=== PATIENT | female | born 1985 | race African-American/Black ===

== ENCOUNTER 2016-10-08 05:57 | Inpatient (IN) | payer BC, MEDICAID, OTHER ==
[2016-10-08] MEDS ORDERED: Sodium Chloride 0.9% 10 ML Syringe FLUSH PRN ×2 (06:04→10:11)
[2016-10-08] MEDS ORDERED: Sodium Chloride 0.9% 2.5 ML Syringe FLUSH PRN ×2 (06:04→10:11)
[2016-10-08] MEDS ORDERED: Citric Acid/Sodium Citrate Solution 30 ML Cup PO SCH (06:15)
[2016-10-08] MEDS ORDERED: Oxytocin 10 Units/1 ML SDV ONE ×2 (07:15→09:37)
[2016-10-08] MEDS ORDERED: ePHEDrine 50 MG/ML SDV ONE (07:15)
[2016-10-08] MEDS ORDERED: Ondansetron 4 MG/2 ML SDV ONE (07:15)
[2016-10-08] MEDS ORDERED: Morphine PF 10 MG/10 ML SDV ONE (07:15)
[2016-10-08] MEDS: Lactated Ringers 1,000 ML IV SCH ×3 (07:25→12:40)
--- NOTE | 2016-10-08 07:50 | PCM.PREANE ---
Preanesthetic Assessment - Anesthesia/Transfusion/Family Hx Anesthesia History: Prior Anesthesia Without Reaction (prior x2) Type of Anesthesia Reaction: Unknown Family History of Anesthesia Reaction: No Transfusion History: No Prior Transfusion(s) Intubation History: Unknown - Review of Systems General: Other (morbid obesity) Pulmonary: Other (suspect early cold, sore throat) Cardiovascular: Palpitations (SVT using intermittent pindolol) Gastrointestinal: Other (GERD) Neurological: No Symptoms Other: Reports: None - Physical Assessment Height: 5 ft 3.5 in Weight: 347 lb ASA Class: 3 Mental Status: Alert & Oriented x3 Airway Class: Mallampati = 2 Dentition: Reports: Normal Dentition Thyro-Mental Finger Breadths: 4 Mouth Opening Finger Breadths: 3 ROM/Head Extension: Full Lungs: Clear to auscultation, Decreased breath sounds (probably due to physical status) Cardiovascular: Regular Rate, Regular Rhythm - Lab Values: Laboratory Last Values WBC 8.41 K/uL (4.0-11.0) 10/08/16 06:39 RBC 3.69 M/uL (4.30-5.90) L 10/08/16 06:39 Hgb 11.8 g/dL (12.0-16.0) L 10/08/16 06:39 Hct 35.1 % (36.0-46.0) L 10/08/16 06:39 MCV 95.1 fL (80.0-98.0) 10/08/16 06:39 MCH 32.0 pg (27.0-32.0) 10/08/16 06:39 MCHC 33.6 g/dL (31.0-37.0) 10/08/16 06:39 RDW Std Deviation 45.4 fl (28.0-62.0) 10/08/16 06:39 RDW Coeff of Jarek 13 % (11.0-15.0) 10/08/16 06:39 Plt Count 210 K/uL (150-400) 10/08/16 06:39 MPV 10.60 fL (7.40-12.00) 10/08/16 06:39 Nucleated RBC % 0.0 /100WBC 10/08/16 06:39 Nucleated RBCs # 0 K/uL 10/08/16 06:39 - Allergies Allergies/Adverse Reactions: Allergies Allergy/AdvReac Type Severity Reaction Status Date / Time Penicillins Allergy Rash Verified 10/08/16 06:03 - Blood Blood Available: Yes Product(s) Available: PRBC - Anesthesia Plan Pre-Op Medication Ordered: Antacids, Beta Simon (asked tpo giove beta simon preop) Beta Simon: Other (pindolol) Med Last Dose Date: 10/08/16 Med Last Dose Time: 07:40 - Acknowledgements Anesthesia Type Planned: Spinal Pt an Appropriate Candidate for the Planned Anesthesia: Yes Alternatives and Risks of Anesthesia Discussed w Pt/Guardian: Yes Pt/Guardian Understands and Agrees with Anesthesia Plan: Yes Additional Comments: present for interview and will be in the room for delivery. 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[employer] History: Reports: , Other (see below) Other OB/BYN History: x 2 Endocrine/Metabolic History: Reports: Obesity/BMI 30+ - Infectious Disease History Infectious Disease History: Reports: Chicken pox, Shingles - Past Surgical History Head Surgeries/Procedures: Reports: None HEENT Surgical History: Reports: Other (see below) Other HEENT Surgeries/Procedures: Patient states sore throat started 2 days ago , also patient complaining of 'nasal sniffles' Cardiovascular Surgical History: Reports: None Other Cardiovascular Surgeries/Procedures: Unsuccessful alation GI Surgical History: Reports: Cholecystectomy Female Surgical History: Reports: section - SUBSTANCE USE Smoking Status *Q: Former Smoker Tobacco Use Within Last Twelve Months: No, Cigarettes Second Hand Smoke Exposure: No Days Per Week of Alcohol Use: 0 Recreational Drug Use History: No - HOME MEDS Home Medications: Home Meds Pnv with Ca,No.71/Iron/Fa [ Vitamin Tablet] 1 tab PO DAILY 02/16/15 [ History] Pindolol 5 mg PO ASDIRECTED 10/03/16 [History] - CURRENT (IN HOUSE) MEDS Current Meds: Current Medications Citric Acid/Sodium Citrate (Bicitra Solution) 30 ml PO .ONCE SOLIS Last Admin: 10/08/16 07:37 Dose: 30 ml Lactated Ringer's (Ringers, Lactated) 1,000 mls @ 500 mls/hr IV .BOLUS SOLIS Last Admin: 10/08/16 07:42 Dose: 500 mls/hr Sodium Chloride (Saline Flush) 10 ml FLUSH ASDIRECTED PRN PRN Reason: Keep Vein Open Sodium Chloride (Saline Flush) 2.5 ml FLUSH ASDIRECTED PRN PRN Reason: Keep Vein Open Discontinued Medications Ephedrine Sulfate (Ephedrine Sulfate) Confirm Administered Dose 50 mg .ROUTE .STK-MED ONE Stop: 10/08/16 07:16 Cefazolin Sodium/Dextrose 3 gm (/ Premix) 75 mls @ 100 mls/hr IV ONETIME ONE Stop: 10/08/16 06:36 Morphine Sulfate (Duramorph Pf) Confirm Administered Dose 10 mg .ROUTE .STK-MED ONE Stop: 10/08/16 07:16 Ondansetron HCl (Zofran) Confirm Administered Dose 4 mg .ROUTE .STK-MED ONE Stop: 10/08/16 07:16 Oxytocin (Pitocin) Confirm Administered Dose 10 unit .ROUTE .STK-MED ONE Stop: 10/08/16 07:16 Preanesthetic Assessment - ANESTHESIA/TRANSFUSION/FAMILY HX Anesthesia/Transfusion History: No Prior Transfusion(s), Prior Anesthesia Family History of Anesthesia Reaction: No - PHYSICAL ASSESSMENT Height: 5 ft 3.5 in Weight: 347 lb - LAB Values: Laboratory Last Values WBC 8.41 K/uL (4.0-11.0) 10/08/16 06:39 RBC 3.69 M/uL (4.30-5.90) L 10/08/16 06:39 Hgb 11.8 g/dL (12.0-16.0) L 10/08/16 06:39 Hct 35.1 % (36.0-46.0) L 10/08/16 06:39 MCV 95.1 fL (80.0-98.0) 10/08/16 06:39 MCH 32.0 pg (27.0-32.0) 10/08/16 06:39 MCHC 33.6 g/dL (31.0-37.0) 10/08/16 06:39 RDW Std Deviation 45.4 fl (28.0-62.0) 10/08/16 06:39 RDW Coeff of Jarek 13 % (11.0-15.0) 10/08/16 06:39 Plt Count 210 K/uL (150-400) 10/08/16 06:39 MPV 10.60 fL (7.40-12.00) 10/08/16 06:39 Nucleated RBC % 0.0 /100WBC 10/08/16 06:39 Nucleated RBCs # 0 K/uL 10/08/16 06:39 - ALLERGIES Allergies/Adverse Reactions: Allergies Allergy/AdvReac Type Severity Reaction Status Date / Time Penicillins Allergy Rash Verified 10/08/16 06:03
[2016-10-08] MEDS ORDERED: Phenylephrine/Normal Saline 100 MCG/ML 10 ML Syringe ONE (08:27)
[2016-10-08] MEDS ORDERED: Phenylephrine 1% 10 MG/ML SDV ONE (08:27)
[2016-10-08] MEDS ORDERED: Naloxone 0.4 MG/ML Syringe IVPUSH PRN (09:19)
[2016-10-08] MEDS ORDERED: fentaNYL 100 MCG/2 ML SDV IVPUSH PRN (09:19)
[2016-10-08] MEDS ORDERED: Nalbuphine 10 MG/1 ML Vial IVPUSH PRN (09:19)
[2016-10-08] MEDS ORDERED: Acetaminophen/oxyCODONE 325-5 MG Tab PO PRN ×2 (09:19→10:11)
[2016-10-08] MEDS ORDERED: diphenhydrAMINE 50 MG/ML SDV IVPUSH PRN (10:11)
[2016-10-08] MEDS ORDERED: Bisacodyl 10 MG Supp RECTAL PRN (10:11)
[2016-10-08] MEDS ORDERED: Ondansetron 4 MG/2 ML SDV IV PRN (10:11)
[2016-10-08] MEDS ORDERED: Ibuprofen 800 MG Tab PO PRN (10:11)
[2016-10-08] MEDS ORDERED: Lanolin 100% Cream 7 GM Tube TOP PRN (10:11)
[2016-10-08] MEDS: Ketorolac 30 MG/ML SDV IVPUSH SCH ×3 (10:37→22:37)
[2016-10-08] MEDS: diphenhydrAMINE 50 MG/ML SDV IVPUSH PRN ×3 (11:15→22:46)
--- NOTE | 2016-10-08 12:24 | PCM.OPNOTE ---
- General Post-Op/Procedure Note Date of Surgery/Procedure: 10/08/16 Operative Procedure(s): Repeat section and bilateral salpingectomies Findings: Male infant, wt 3590gram, Apgars 7 and 9. Normal appearing tubes, ovaries and uterus. Incidental finding on posterior uterine wall, was dislodged surgical clips and multiple possibly gall stones( most likely migrated during her cholecystectomy): removed and send to pathology for confirmation. Dense adhesion between the rectus muscle and the fascia. Pre Op Diagnosis: 1) 39 weeks gestation. 2) Previous section x 2. 3) Desires Permanent Sterilization Post-Op Diagnosis: Same Anesthesia Technique: Spinal Primary Surgeon: Che Altman Founder And Chief Executive Officer: Shaniqua Chou Pathology: Right and left fallopian tubes Possible gall stones Fluid Replacement, Intraop: 3,000 Output, Urine Amount: 100 EBL in mLs: 600 Complications: None Condition: Good Free Text/Narrative:: Intake & Output 10/07/16 10/08/16 10/08/16 22:59 06:59 14:59 Intake Total 3150 Output Total 190 Balance 2960
[2016-10-08] MEDS ORDERED: Lactated Ringers 1,000 ML IV SCH (13:45)
--- NOTE | 2016-10-08 19:32 | PCM.POSTAN ---
POST ANESTHESIA ASSESSMENT - MENTAL STATUS Mental Status: alert, oriented - RESPIRATORY Respiratory Status: respiratory rate WNL, airway patent, O2 saturation stable - CARDIOVASCULAR CV Status: pulse rate WNL, blood pressure stable - GASTROINTESTINAL GI Status: no symptoms - POST OP HYDRATION Hydration Status: adequate & stable
--- NOTE | 2016-10-08 19:33 | PCM48HPAN ---
Post Anesthesia Note - EVALUATION WITHIN 48HRS OF ANESTHETIC Vital Signs in Normal Range: Yes Patient Participated in Evaluation: Yes Respiratory Function Stable: Yes Airway Patent: Yes Cardiovascular Function Stable: Yes Hydration Status Stable: Yes Pain Control Satisfactory: Yes Nausea and Vomiting Control Satisfactory: Yes Mental Status Recovered: Yes - COMMENTS/OBSERVATIONS Free Text/Narrative:: Pt remains on duramorph precautions at this time. Pain has been well controlled to this point. Will continue to follow.
[2016-10-08] MEDS: Docusate Sodium 100 MG Cap PO SCH (21:42)
[2016-10-09] MEDS: Lactated Ringers 1,000 ML IV SCH (02:13)
--- NOTE | 2016-10-09 02:43 | OR ---
SURGEON: Che Altman MD DATE OF PROCEDURE: 10/08/2016 PUNCH BOX TENDER: Dr. Chou. PREOPERATIVE DIAGNOSES: 1. 39 weeks gestation. 2. Two Previous section. 3. Desires permanent sterilization. POSTOPERATIVE DIAGNOSES: 1. 39 weeks gestation. 2. Two Previous section. 3. Desires permanent sterilization. 4. Delivered. PROCEDURE: Repeat section and bilateral salpingectomies. ANESTHESIA: Spinal. ESTIMATED BLOOD LOSS: 600 mL. IV FLUID: 3000 mL of Crystalloid. URINE OUTPUT: 100, clear at the end of the procedure. COMPLICATIONS: None. DISPOSITION: Stable to recovery room. FINDINGS: Male , weight 3590 g, score 7 and 8 at 1 and 5 minutes respectively. Normal-appearing tubes, ovaries, and uterus. Incidental finding on the posterior uterine wall of dislodged surgical clips and multiple possible gallstones (most likely migrated during her cholecystectomy), these were removed and sent to pathology for analysis. Dense adhesions between the rectus muscles and the fascia. INDICATION: The patient is a 30-year-old, G5, P3 with a history of two previous sections opted for a repeat section. Patient desires permanent sterilization. PROCEDURE IN DETAIL: The patient was taken to the operating room, where a spinal anesthesia was performed and found to be adequate. She was then placed in dorsal spine position with a leftward tilt. Prepped and draped in the usual sterile fashion for section. SCDs were in place. Benavides catheter in situ and appropriate time-out held. The patient received 3 g of Ancef. A Pfannenstiel skin incision was made through the old scar and carried through to the underlying layer of fascia with the Bovie. The fascia was scored in the midline and extended laterally with the Bovie. The superior aspect of the fascial incision was grasped with Xuan clamps, elevated, and the underlying rectus muscle, which was densely adherent to the fascia was then dissected off with sharp dissection using the scalpel. In a similar fashion, the inferior aspect of this fascial incision was grasped with Xuan clamps, elevated, and the rectus muscle which was also densely adherent to the fascia was dissected off sharply with the scalpel. In the course of the dissection, lot of perforators were encountered, these were either cauterized or had to be suture ligated to obtain adequate hemostasis. The rectus muscle was then elevated in the midline with 2 Allis clamps on either side and was carefully using the Bovie until the parietal peritoneum was reached and a window was created in the peritoneum. The Allis clamps were removed and digital sweep of the immediate abdominal cavity was performed making sure that there were no adherent bowel underneath before the layer was further taken down with the Bovie, all the way down with good visualization of the bladder. The peritoneal incision was further extended laterally by stretching. An Dio self-retaining retractor was then placed into the abdominal cavity. A very thin lower uterine segment with a window towards the right side of the anterior uterine wall was noted. The vesicouterine peritoneum was identified, and picked up with the pickups and then entered sharply with the Metzenbaum scissors and a bladder flap was created digitally. A transverse uterine incision was then made on the lower uterine wall along the previously mentioned uterine window, this uterine incision was then extended upwards and downwards digitally. The infant's head was delivered atraumatically followed by the shoulders and the rest of the body without difficulty. The oropharynx and nostrils were bulb suctioned on the abdomen. The cord was double clamped and cut and the was handed over to the waiting nursery staff. Cord blood and gas samples were obtained. The placenta was delivered manually. The uterine cavity was cleaned of all clots and debris. The edges of the uterine incision were identified and the hysterotomy site was closed in 2 layers using a 0 Vicryl suture. The first layer was closed in a running locked fashion and the second imbricating layer was performed to obtain excellent hemostasis. One hemostatic stitch was placed on the lower uterine segment towards the right angle, after this the hysterotomy site was found to be completely hemostatic. The uterus was then exteriorized and both tubes were identified and traced all the way to their fimbrial ends. It was during the course of tracing the fallopian tubes that the possible multiple gallstones were noted at the posterior uterine wall. These were excised with the Bovie and sent off for pathological analysis. Using [place] to elevate the left fallopian tube, a salpingectomy was performed using the Harmonic device by cauterizing and ligating along the mesosalpinx until the tube was completely excised up to the cornea. In similar fashion, the right fallopian tube was elevated with the [place] and a salpingectomy was performed in similar fashion. Both sites were hemostatic. The uterus was returned to the abdominal cavity. Copious irrigation was performed. The hysterotomy site was re-examined and found to have excellent hemostasis. The Dio retractor was then removed from the abdominal cavity. The parietal peritoneal edges which were flushed onto the rectus muscle was identified and this layer was then closed with 2-0 Vicryl suture in a running fashion. The muscular layer was reapproximated with 2 mattress type sutures. The subfascial layer was irrigated and found to have excellent hemostasis. The fascia was then closed with 0 PDS in a running fashion. Subcuticular layer was made hemostatic with electrocautery. The subcutaneous layer was reapproximated with 3-0 plain suture in a running fashion since it was more than 3 cm in depth. The skin was closed with 4-0 Monocryl using subcuticular stitches. The patient tolerated the procedure well. Sponge, instrument, and needle counts were reported as complete at the end of the surgery. The patient was taken to the recovery room in stable condition and the baby to the nursery in a stable condition. EEV / ELENI /[id number] MTDHarpreet
[2016-10-09] MEDS: Ketorolac 30 MG/ML SDV IVPUSH SCH ×2 (04:24→09:55)
--- NOTE | 2016-10-09 08:33 | PCM.PNPP ---
- General Info Date of Service: 10/09/16 Functional Status: Reports: pain controlled, tolerating diet, ambulating, other (Benavides was just removed this am) - Review of Systems General: Denies: Fever, Weakness, Fatigue, Malaise HEENT: Denies: headaches Pulmonary: Denies: shortness of breath, pleuritic chest pain, cough Cardiovascular: Denies: Chest Pain, Palpitations, Dyspnea on Exertion Gastrointestinal: Denies: Abdominal pain, Nausea, Vomiting Genitourinary: Denies: flank pain Neurological: Denies: Confusion Psychiatric: Denies: depression, mood lability, anxiety - General Info Date of Service: 10/09/16 - Patient Data Vital Signs - most recent: Last Vital Signs Temp 36.3 C 10/09/16 04:00 Pulse 77 10/09/16 04:00 Resp 16 10/09/16 06:00 BP 119/59 L 10/09/16 04:00 Pulse Ox 93 L 10/09/16 06:00 Weight - most recent: 347 lb I&O - last 24 hours: Intake & Output 10/08/16 10/09/16 10/09/16 22:59 06:59 14:59 Intake Total 2190 1529 Output Total 135 1350 Balance 2055 179 Lab Results - last 24 hrs: Laboratory Results - last 24 hr 10/09/16 Range/Units 04:45 Hgb 10.1 L (12.0-16.0) g/dL Hct 29.7 L (36.0-46.0) % Med Orders - Current: Current Medications Bisacodyl (Dulcolax) 10 mg RECTAL .ONCE PRN PRN Reason: Constipation Diphenhydramine HCl (Benadryl) 25 mg IVPUSH Q4H PRN PRN Reason: Itching Stop: 10/09/16 09:19 Last Admin: 10/08/16 22:46 Dose: 25 mg Diphenhydramine HCl (Benadryl) 25 mg IVPUSH Q6H PRN PRN Reason: Itching or Nausea Docusate Sodium (Colace) 100 mg PO BID SOLIS Last Admin: 10/08/16 21:42 Dose: 100 mg Emollient Ointment (Lansinoh Hpa) 0 gm TOP ASDIRECTED PRN PRN Reason: Sore Nipples Fentanyl (Sublimaze) 25 - 50 mcg IVPUSH Q30M PRN PRN Reason: Pain Lactated Ringer's (Ringers, Lactated) 1,000 mls @ 125 mls/hr IV ASDIRECTED [facility] Last Admin: 10/09/16 02:13 Dose: 125 mls/hr Lactated Ringer's (Ringers, Lactated) 1,000 mls @ 500 mls/hr IV ASDIRECTED [facility] Last Admin: 10/08/16 13:45 Dose: 500 mls/hr Ibuprofen (Motrin) 800 mg PO Q8H PRN PRN Reason: mild pain or fever Ketorolac Tromethamine (Toradol) 30 mg IVPUSH Q6H [facility] Stop: 10/09/16 10:16 Last Admin: 10/09/16 04:24 Dose: 30 mg Measles/Mumps/Rubella Vaccine Live (M-M-R Ii Vaccine) 0.5 ml SUBCUT .ONCE ONE Stop: 10/12/16 10:12 Nalbuphine HCl (Nubain) 5 mg IVPUSH Q3H PRN PRN Reason: Pruritis Stop: 10/09/16 09:19 Naloxone HCl (Narcan) 0.1 mg IVPUSH ONETIME PRN PRN Reason: Other Stop: 10/09/16 09:19 Ondansetron HCl (Zofran) 4 mg IV Q4H PRN PRN Reason: Nausea/Vomiting Oxycodone/Acetaminophen (Percocet 325-5 Mg) 1 - 2 tab PO Q6H PRN PRN Reason: Pain Stop: 10/10/16 14:00 Last Admin: 10/08/16 11:26 Dose: 2 tab Oxycodone/Acetaminophen (Percocet 325-5 Mg) 1 tab PO Q4H PRN PRN Reason: Pain (moderate 4-6) Oxycodone/Acetaminophen (Percocet 325-5 Mg) 2 tab PO Q4H PRN PRN Reason: Pain (moderate 4-6) Pindolol (Visken) 5 mg PO BID PRN PRN Reason: Palpitations Sodium Chloride (Saline Flush) 10 ml FLUSH ASDIRECTED PRN PRN Reason: Keep Vein Open Sodium Chloride (Saline Flush) 2.5 ml FLUSH ASDIRECTED PRN PRN Reason: Keep Vein Open Discontinued Medications Citric Acid/Sodium Citrate (Bicitra Solution) 30 ml PO .ONCE SOLIS Last Admin: 10/08/16 07:37 Dose: 30 ml Ephedrine Sulfate (Ephedrine Sulfate) Confirm Administered Dose 50 mg .ROUTE .STK-MED ONE Stop: 10/08/16 07:16 Glycopyrrolate () Confirm Administered Dose 1 mg .ROUTE .STK-MED ONE Stop: 10/08/16 09:38 Lactated Ringer's (Ringers, Lactated) 1,000 mls @ 500 mls/hr IV .BOLUS SOLIS Last Admin: 10/08/16 07:42 Dose: 500 mls/hr Cefazolin Sodium/Dextrose 3 gm (/ Premix) 75 mls @ 100 mls/hr IV ONETIME ONE Stop: 10/08/16 06:36 Last Admin: 10/08/16 19:43 Dose: Not Given Cefazolin Sodium/Dextrose (Ancef) Confirm Administered Dose 50 mls @ as directed .ROUTE .STK-MED ONE Stop: 10/08/16 08:01 Morphine Sulfate (Duramorph Pf) Confirm Administered Dose 10 mg .ROUTE .STK-MED ONE Stop: 10/08/16 07:16 Ondansetron HCl (Zofran) Confirm Administered Dose 4 mg .ROUTE .STK-MED ONE Stop: 10/08/16 07:16 Oxytocin (Pitocin) Confirm Administered Dose 10 unit .ROUTE .STK-MED ONE Stop: 10/08/16 07:16 Oxytocin (Pitocin) Confirm Administered Dose 20 unit .ROUTE .STK-MED ONE Stop: 10/08/16 09:38 Phenylephrine HCl (Phenylephrine In Ns 100 Mcg/Ml) Confirm Administered Dose 1 mg .ROUTE .STK-MED ONE Stop: 10/08/16 08:28 Phenylephrine HCl (Nelson-Synephrine) Confirm Administered Dose 10 mg .ROUTE .STK- MED ONE Stop: 10/08/16 08:28 Sodium Chloride (Saline Flush) 10 ml FLUSH ASDIRECTED PRN PRN Reason: Keep Vein Open Sodium Chloride (Saline Flush) 2.5 ml FLUSH ASDIRECTED PRN PRN Reason: Keep Vein Open - Infant Interaction Disposition, : North in Room with Family Support Person: Significant Other - Recovery Exam Fundal Tone: Firm Fundal Level: 1 Fingerbreadths Below Umbilicus Fundal Placement: Midline Lochia Amount: Scant, Small Lochia Color: Rubra/Red Perineum Description: Intact, Minimal Bruising/Swelling Episiotomy/Laceration: None Urinary Elimination: Other (see below) (Benavides removed this am, yet to void) - Exam General: alert, oriented Lungs: Clear to auscultation, Normal respiratory effort Cardiovascular: Regular Rate, Regular Rhythm Abdomen: bowel sounds present, soft, no tenderness, no distension Extremities: no calf tenderness, edema Skin: warm Wound/Incisions: dressing dry and intact Psy/Mental Status: alert, normal affect, normal mood - Problem List & Annotations (1) delivery delivered SNOMED Code(s): 326954702 Code(s): O82 - ENCOUNTER FOR DELIVERY WITHOUT INDICATION Status: Acute Current Visit: No - Problem List Review Problem List Initiated/Reviewed/Updated: Yes - My Orders Last 24 Hours: My Active Orders 10/08/16 10:11 Acetaminophen/oxyCODONE [Percocet 325-5 MG] 1 tab PO Q4H PRN Acetaminophen/oxyCODONE [Percocet 325-5 MG] 2 tab PO Q4H PRN Bisacodyl [Dulcolax] 10 mg RECTAL .ONCE PRN Ibuprofen [Motrin] 800 mg PO Q8H PRN Lanolin [Lansinoh HPA] See Dose Instructions TOP ASDIRECTED PRN Ondansetron [Zofran] 4 mg IV Q4H PRN Pindolol [Visken] 5 mg PO BID PRN Sodium Chloride 0.9% [Saline Flush] 10 ml FLUSH ASDIRECTED PRN Sodium Chloride 0.9% [Saline Flush] 2.5 ml FLUSH ASDIRECTED PRN diphenhydrAMINE [Benadryl] 25 mg IVPUSH Q6H PRN Abdominal Binder [OM.PC] Routine Saline Lock Insert [OM.PC] Routine Resuscitation Status Routine 10/08/16 10:12 Patient Status [ADT] Routine Ambulate [RC] PER UNIT ROUTINE Communication Order [RC] PER UNIT ROUTINE Communication Order [RC] PER UNIT ROUTINE Communication Order [RC] Per Unit Routine May Shower [RC] ASDIRECTED RT Incentive Spirometry [RC] Q2HWA Vital Signs [RC] PER UNIT ROUTINE Assess Lochia [WOMSER] Per Unit Routine Assess Uterine Involution [WOMSER] Per Unit Routine Breast Pump [WOMSER] Per Unit Routine Peripheral IV Discontinue [OM.PC] Routine Sequential Compression Device [OM.PC] Per Unit Routine 10/08/16 10:13 Antiembolic Devices [RC] PER UNIT ROUTINE Intake and Output [RC] Q4H 10/08/16 10:14 Notify Provider Intake and Out [RC] ASDIRECTED Notify Provider Vital Signs [RC] ASDIRECTED 10/08/16 10:15 Ketorolac [Toradol] 30 mg IVPUSH Q6H Lactated Ringers [Ringers, Lactated] 1,000 ml IV ASDIRECTED 10/08/16 13:45 Lactated Ringers [Ringers, Lactated] 1,000 ml IV ASDIRECTED 10/08/16 21:00 Docusate Sodium [Colace] 100 mg PO BID 10/08/16 Lunch Regular Diet [DIET] 10/12/16 10:11 Measles, Mumps & Rubella [M-M-R II Vaccine] 0.5 ml SUBCUT .ONCE ONE - Assessment Assessment:: POD#1 s/p RLTCS and Bilateral salpingectomies, stable and afebrile - Plan Plan:: Doing well. Continue current care and anticipate discharge tomorrow
[2016-10-09] MEDS: Docusate Sodium 100 MG Cap PO SCH ×2 (09:55→20:29)
[2016-10-09] MEDS: Acetaminophen/oxyCODONE 325-5 MG Tab PO PRN (20:30)
[2016-10-09] MEDS ORDERED: guaiFENesin 100 MG/5 ML Soln 10 ML UD Cup PO PRN (20:49)
[2016-10-10] MEDS: Acetaminophen/oxyCODONE 325-5 MG Tab PO PRN (03:38)
--- NOTE | 2016-10-10 08:47 | PCM.PNPP ---
- General Info Date of Service: 10/10/16 Functional Status: Reports: pain controlled, tolerating diet, ambulating, urinating - Review of Systems General: Denies: Fever, Weakness, Fatigue, Chills HEENT: Denies: headaches Pulmonary: Denies: shortness of breath, pleuritic chest pain, cough Cardiovascular: Denies: Chest Pain, Palpitations, Dyspnea on Exertion Gastrointestinal: Denies: Abdominal pain Genitourinary: Denies: dysuria, incontinence Psychiatric: Denies: confusion, depression, mood lability, anxiety - General Info Date of Service: 10/10/16 - Patient Data Vital Signs - most recent: Last Vital Signs Temp 36.7 C 10/10/16 03:36 Pulse 114 H 10/10/16 03:36 Resp 20 10/10/16 03:36 BP 117/55 L 10/10/16 03:36 Pulse Ox 99 10/09/16 20:31 Weight - most recent: 347 lb I&O - last 24 hours: Intake & Output 10/09/16 10/10/16 10/10/16 22:59 06:59 14:59 Intake Total 1000 Output Total 1400 Balance -400 Med Orders - Current: Current Medications Bisacodyl (Dulcolax) 10 mg RECTAL .ONCE PRN PRN Reason: Constipation Diphenhydramine HCl (Benadryl) 25 mg IVPUSH Q6H PRN PRN Reason: Itching or Nausea Last Admin: 10/09/16 10:14 Dose: 25 mg Docusate Sodium (Colace) 100 mg PO BID COUNT INCLUDES THE [facility] Last Admin: 10/09/16 20:29 Dose: 100 mg Emollient Ointment (Lansinoh Hpa) 0 gm TOP ASDIRECTED PRN PRN Reason: Sore Nipples Fentanyl (Sublimaze) 25 - 50 mcg IVPUSH Q30M PRN PRN Reason: Pain Guaifenesin (Robitussin) 200 mg PO Q4H PRN PRN Reason: Cough Last Admin: 10/09/16 21:07 Dose: 200 mg Lactated Ringer's (Ringers, Lactated) 1,000 mls @ 125 mls/hr IV ASDIRECTED SOLIS Last Admin: 10/09/16 02:13 Dose: 125 mls/hr Lactated Ringer's (Ringers, Lactated) 1,000 mls @ 500 mls/hr IV ASDIRECTED SOLIS Last Admin: 10/08/16 13:45 Dose: 500 mls/hr Ibuprofen (Motrin) 800 mg PO Q8H PRN PRN Reason: mild pain or fever Measles/Mumps/Rubella Vaccine Live (M-M-R Ii Vaccine) 0.5 ml SUBCUT .ONCE ONE Stop: 10/12/16 10:12 Ondansetron HCl (Zofran) 4 mg IV Q4H PRN PRN Reason: Nausea/Vomiting Oxycodone/Acetaminophen (Percocet 325-5 Mg) 1 - 2 tab PO Q6H PRN PRN Reason: Pain Stop: 10/10/16 14:00 Last Admin: 10/08/16 11:26 Dose: 2 tab Oxycodone/Acetaminophen (Percocet 325-5 Mg) 1 tab PO Q4H PRN PRN Reason: Pain (moderate 4-6) Oxycodone/Acetaminophen (Percocet 325-5 Mg) 2 tab PO Q4H PRN PRN Reason: Pain (moderate 4-6) Last Admin: 10/10/16 03:38 Dose: 2 tab Pindolol (Visken) 5 mg PO BID PRN PRN Reason: Palpitations Sodium Chloride (Saline Flush) 10 ml FLUSH ASDIRECTED PRN PRN Reason: Keep Vein Open Sodium Chloride (Saline Flush) 2.5 ml FLUSH ASDIRECTED PRN PRN Reason: Keep Vein Open Discontinued Medications Citric Acid/Sodium Citrate (Bicitra Solution) 30 ml PO .ONCE SOLIS Last Admin: 10/08/16 07:37 Dose: 30 ml Diphenhydramine HCl (Benadryl) 25 mg IVPUSH Q4H PRN PRN Reason: Itching Stop: 10/09/16 09:19 Last Admin: 10/08/16 22:46 Dose: 25 mg Ephedrine Sulfate (Ephedrine Sulfate) Confirm Administered Dose 50 mg .ROUTE .STK-MED ONE Stop: 10/08/16 07:16 Glycopyrrolate () Confirm Administered Dose 1 mg .ROUTE .STK-MED ONE Stop: 10/08/16 09:38 Lactated Ringer's (Ringers, Lactated) 1,000 mls @ 500 mls/hr IV .BOLUS SOLIS Last Admin: 10/08/16 07:42 Dose: 500 mls/hr Cefazolin Sodium/Dextrose 3 gm (/ Premix) 75 mls @ 100 mls/hr IV ONETIME ONE Stop: 10/08/16 06:36 Last Admin: 10/08/16 19:43 Dose: Not Given Cefazolin Sodium/Dextrose (Ancef) Confirm Administered Dose 50 mls @ as directed .ROUTE .STK-MED ONE Stop: 10/08/16 08:01 Ketorolac Tromethamine (Toradol) 30 mg IVPUSH Q6H SOLIS Stop: 10/09/16 10:16 Last Admin: 10/09/16 09:55 Dose: 30 mg Morphine Sulfate (Duramorph Pf) Confirm Administered Dose 10 mg .ROUTE .STK-MED ONE Stop: 10/08/16 07:16 Nalbuphine HCl (Nubain) 5 mg IVPUSH Q3H PRN PRN Reason: Pruritis Stop: 10/09/16 09:19 Naloxone HCl (Narcan) 0.1 mg IVPUSH ONETIME PRN PRN Reason: Other Stop: 10/09/16 09:19 Ondansetron HCl (Zofran) Confirm Administered Dose 4 mg .ROUTE .STK-MED ONE Stop: 10/08/16 07:16 Oxytocin (Pitocin) Confirm Administered Dose 10 unit .ROUTE .STK-MED ONE Stop: 10/08/16 07:16 Oxytocin (Pitocin) Confirm Administered Dose 20 unit .ROUTE .STK-MED ONE Stop: 10/08/16 09:38 Phenylephrine HCl (Phenylephrine In Ns 100 Mcg/Ml) Confirm Administered Dose 1 mg .ROUTE .STK-MED ONE Stop: 10/08/16 08:28 Phenylephrine HCl (Nelson-Synephrine) Confirm Administered Dose 10 mg .ROUTE .STK- MED ONE Stop: 10/08/16 08:28 Sodium Chloride (Saline Flush) 10 ml FLUSH ASDIRECTED PRN PRN Reason: Keep Vein Open Sodium Chloride (Saline Flush) 2.5 ml FLUSH ASDIRECTED PRN PRN Reason: Keep Vein Open - Interaction Disposition, : Lando at Bedside Feeding: Breastfed Infant; Nursed Well, Continues to Breastfeed Support Person: Significant Other - Recovery Exam Fundal Tone: Firm Fundal Level: 1 Fingerbreadths Below Umbilicus Fundal Placement: Midline Lochia Amount: Scant Lochia Color: Rubra/Red Perineum Description: Intact, Minimal Bruising/Swelling Episiotomy/Laceration: None Bladder Status: Voiding Urinary Elimination: Voided - Exam General: alert, oriented Lungs: Clear to auscultation, Normal respiratory effort Cardiovascular: Regular Rate, Regular Rhythm Abdomen: bowel sounds present, soft, no tenderness, no distension Extremities: no calf tenderness, edema Wound/Incisions: healing well Psy/Mental Status: alert, normal affect, normal mood - Problem List & Annotations (1) delivery delivered SNOMED Code(s): 563656199 Code(s): O82 - ENCOUNTER FOR DELIVERY WITHOUT INDICATION Status: Acute Current Visit: No - Problem List Review Problem List Initiated/Reviewed/Updated: Yes - My Orders Last 24 Hours: My Active Orders 10/12/16 10:11 Measles, Mumps & Rubella [M-M-R II Vaccine] 0.5 ml SUBCUT .ONCE ONE - Assessment Assessment:: POD#2 s/p RLTCS and Bilateral salpingectomies, doing well and clinically stable for discharge - Plan Plan:: Discharge instructions reviewed Nothing in the vagina for 6 weeks Bleeding and infection precautions reviewed Continue PNV Follow up in the clinic in 2 and 6 weeks
[2016-10-10] MEDS: Docusate Sodium 100 MG Cap PO SCH (09:08)
[2016-10-10 10:18] VITALS: BP 134/80
[2016-10-10] MEDS ORDERED: Measles, Mumps & Rubella Vaccine 0.5 ML SDV SUBCUT ONE (11:15)
== END 2016-10-10 11:05 | disposition home or self-care (01) | DRG 540 ==
LOC: MW.OB 05:57
PROVIDERS: ADMIT Obstetrics & Gynecology; ATTEND Obstetrics & Gynecology
PROC: 10D00Z1 Extraction of Products of Conception, Low, Open Approach (ICD-10-PCS; principal; 2016-10-08)
PROC: 0UT70ZZ Resection of Bilateral Fallopian Tubes, Open Approach (ICD-10-PCS; 2016-10-08)
DX: O34.211 Maternal care for low transverse scar from previous cesarean delivery (principal); Z3A.39 39 weeks gestation of pregnancy; Z37.0 Single live birth; Z30.2 Encounter for sterilization
CPT/HCPCS: 01961; 36415; 59025; 85014; 85018; 85027; 86850; 86900; 86901; 88300; 88302; 90707; A9270-GY; J0690; J1200; J1885; J2270; J2370; J2405; J2590; J7120

== ENCOUNTER → 2016-11-04 | Outpatient (CLI) | payer BC, MEDICAID ==
[~2016-11-04] MED LIST: Iopamidol 755 MG/ML 500 ML Multipack Bottle IVPUSH STA
--- NOTE | 2016-11-04 19:07 | PCM.SN ---
- Free Text/Narrative Note: Called by nursing sup they have been unable to obtain PIV access for CT scan with IV contrast. 22g PIV started to Rt FA, draws blood and flushes with ease.
--- NOTE | 2016-11-05 11:05 | CT ---
EXAM DATE: 11/04/16 PATIENT'S AGE: 30 Patient: KOSTA RISSING Facility: [place], [place] Site . Site : 1985 Study: CT Abdomen/Pelvis [id number]/24/2017 7:14:05 PM Ordering Physician: Bolivar Marie Final Report: INDICATION: Postprocedural seroma TECHNIQUE: CT abdomen and pelvis acquired with oral contrast. COMPARISON: None FINDINGS: Lower chest: Unremarkable. Liver: Unremarkable. Spleen: Unremarkable. Pancreas: Unremarkable. Gallbladder and bile ducts: Status post cholecystectomy. Adrenal glands: Unremarkable. Kidneys: Unremarkable. GI tract: Unremarkable. Vascular structures: Unremarkable. Lymph nodes: Bilateral inguinal lymph nodes reach a maximum diameter of 1.3 cm. Miscellaneous: There is a rim enhancing 2.3 x 12.1 x 3.1 cm fluid and air collection within the lower anterior abdominal wall. Small amount of thickening of the inferior rectus muscles is likely post procedural in nature. There is a fat containing umbilical hernia. Pelvic Organs: Unremarkable. Bones: Unremarkable for age. IMPRESSION: Rim enhancing 2.3 x 12.1 x 3.1 cm fluid and air collection within the lower anterior abdominal wall may represent abscess or seroma. Bilateral inguinal adenopathy may be reactive. Fat containing umbilical hernia. Status post cholecystectomy. Dictated by Elvia Stroud MD @ Nov 04 2016 7:23PM (Electronic Signature) Report Signed by Proxy and Original Signed Document filed in the Medical Record. [facility] HOSPITALHarpreet
== END ==
LOC: MW.CT 18:00
PROVIDERS: ATTEND Obstetrics & Gynecology
DX: K91.873 Postprocedural seroma of a digestive system organ or structure following other procedure (principal); K42.9 Umbilical hernia without obstruction or gangrene; Z90.49 Acquired absence of other specified parts of digestive tract
CPT/HCPCS: 74178; Q9967; 36410

== ENCOUNTER 2018-11-03 08:51 | Day surgery (SDC) | payer BC, OTHER ==
[~2018-11-03 08:51] MED LIST changes: -Iopamidol 755 MG/ML 500 ML Multipack Bottle IVPUSH STA; +Lactated Ringers 1,000 ML IV SCH; +Sodium Chloride 0.9% 10 ML SDV IV PRN; +Sodium Chloride 0.9% 10 ML Syringe FLUSH PRN; +Sodium Chloride 0.9% 2.5 ML Syringe FLUSH PRN
[2018-11-03] MEDS ORDERED: Lidocaine 2% 5 ML SDV ONE (10:38)
[2018-11-03] MEDS ORDERED: Propofol 200 MG/20 ML SDV ONE (10:38)
[2018-11-03] MEDS ORDERED: fentaNYL 100 MCG/2 ML SDV ONE (10:38)
[2018-11-03] MEDS ORDERED: Midazolam 1 MG/ML 2 ML SDV ONE (10:38)
--- NOTE | 2018-11-03 10:55 | PCM.PREANE ---
Preanesthetic Assessment - Anesthesia/Transfusion/Family Hx Anesthesia History: Prior Anesthesia Without Reaction Transfusion History: No Prior Transfusion(s) Intubation History: Unknown - Review of Systems General: No Symptoms Pulmonary: No Symptoms Cardiovascular: No Symptoms Gastrointestinal: No Symptoms Neurological: No Symptoms Other: Reports: None - Physical Assessment NPO Status Date: 11/02/18 NPO Status Time: 20:00 O2 Sat by Pulse Oximetry: 99 Respiratory Rate: 16 Vital Signs: Last Vital Signs Temp 36.2 C 11/03/18 09:39 Pulse 48 L 11/03/18 09:39 Resp 16 11/03/18 09:39 BP 124/56 L 11/03/18 09:39 Pulse Ox 99 11/03/18 09:39 Height: 1.63 m Weight: 82.554 kg ASA Class: 3 Mental Status: Alert & Oriented x3 Airway Class: Mallampati = 2 Dentition: Reports: Normal Dentition Thyro-Mental Finger Breadths: 3 Mouth Opening Finger Breadths: 3 ROM/Head Extension: Full Lungs: Clear to Auscultation, Normal Respiratory Effort Cardiovascular: Regular Rate, Regular Rhythm - Lab Values: Laboratory Last Values Urine HCG, Qual NEGATIVE (NEGATIVE) 11/03/18 09:45 - Allergies Allergies/Adverse Reactions: Allergies Allergy/AdvReac Type Severity Reaction Status Date / Time Penicillins Allergy yeast Verified 10/28/18 09:59 infection - Acknowledgements Anesthesia Type Planned: MAC Pt an Appropriate Candidate for the Planned Anesthesia: Yes Alternatives and Risks of Anesthesia Discussed w Pt/Guardian: Yes Pt/Guardian Understands and Agrees with Anesthesia Plan: Yes PreAnesthesia Questionnaire HEENT History: Reports: Other (See Below) Other HEENT History: wears glasses/contacts Cardiovascular History: Reports: Arrhythmia, Syncope (since , for one year, states that she has been having "fainting" spells frequently. Her last episode was this morning. Discussed with patient that she may have seizures and should have this worked up.), Other (See Below) Other Cardiovascular History: hx SVT. 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: Musculoskeletal History: Reports: None Neurological History: Reports: None Psychiatric History: Reports: Anxiety (related to fainting spells) Endocrine/Metabolic History: Reports: Obesity/BMI 30+ Hematologic History: Reports: None Immunologic History: Reports: None Oncologic (Cancer) History: Reports: None Dermatologic History: Reports: None - Infectious Disease History Infectious Disease History: Reports: Chicken Pox, Shingles - Past Surgical History Head Surgeries/Procedures: Reports: None HEENT Surgical History: Reports: Other (See Below) Other HEENT Surgeries/Procedures: Patient states sore throat started 2 days ago , also patient complaining of 'nasal sniffles' Cardiovascular Surgical History: Reports: None Other Cardiovascular Surgeries/Procedures: Unsuccessful alation Respiratory Surgical History: Reports: None GI Surgical History: Reports: Bariatric Procedure, Cholecystectomy Other GI Surgeries/Procedures: gastric sleeve Female Surgical History: Reports: Section, Tubal Ligation Endocrine Surgical History: Reports: None Neurological Surgical History: Reports: None Musculoskeletal Surgical History: Reports: None Oncologic Surgical History: Reports: None Dermatological Surgical History: Reports: None - SUBSTANCE USE Smoking Status *Q: Former Smoker Recreational Drug Use History: No - HOME MEDS Home Medications: Home Meds Propafenone HCl [Propafenone HCl ER] 225 mg PO BID 10/28/18 [History] Verapamil HCl [Verapamil Sr] 240 mg PO DAILY 10/28/18 [History] - CURRENT (IN HOUSE) MEDS Current Meds: Current Medications Lactated Ringer's (Ringers, Lactated) 1,000 mls @ 125 mls/hr IV ASDIRECTED SOLIS Last Admin: 11/03/18 09:44 Dose: 125 mls/hr Lactated Ringer's (Ringers, Lactated) 1,000 mls @ 125 mls/hr IV ASDIRECTED SOLIS Sodium Chloride (Saline Flush) 10 ml FLUSH ASDIRECTED PRN PRN Reason: Keep Vein Open Sodium Chloride (Saline Flush) 2.5 ml FLUSH ASDIRECTED PRN PRN Reason: Keep Vein Open Sodium Chloride (Saline Flush) 10 ml FLUSH ASDIRECTED PRN PRN Reason: Keep Vein Open Sodium Chloride (Saline Flush) 2.5 ml FLUSH ASDIRECTED PRN PRN Reason: Keep Vein Open Sodium Chloride (Normal Saline) 10 ml IV ASDIRECTED PRN PRN Reason: IV Use Sodium Chloride (Saline Flush) 10 ml FLUSH ASDIRECTED PRN PRN Reason: Keep Vein Open Sodium Chloride (Saline Flush) 2.5 ml FLUSH ASDIRECTED PRN PRN Reason: Keep Vein Open Sodium Chloride (Normal Saline) 10 ml IV ASDIRECTED PRN PRN Reason: IV Use Discontinued Medications Fentanyl (Sublimaze) Confirm Administered Dose 100 mcg .ROUTE .STK-MED ONE Stop: 11/03/18 10:39 Lidocaine (Xylocaine-Mpf 2%) Confirm Administered Dose 5 ml .ROUTE .STK-MED ONE Stop: 11/03/18 10:39 Midazolam HCl (Versed 1 Mg/Ml) Confirm Administered Dose 2 mg .ROUTE .STK-MED ONE Stop: 11/03/18 10:39 Propofol (Diprivan 20 Ml) Confirm Administered Dose 400 mg .ROUTE .STK-MED ONE Stop: 11/03/18 10:39
[2018-11-03] MEDS ORDERED: Glycopyrrolate 0.2 MG/ML SDV ONE (11:27)
--- NOTE | 2018-11-03 11:48 | PCM.OPNOTE ---
- General Post-Op/Procedure Note Date of Surgery/Procedure: 11/03/18 Operative Procedure(s): diagnostic colonoscopy Findings: grade 3 hemorrhoids and hepatic flexure polyp Pre Op Diagnosis: bright red blood per rectum and change in bowel habits Post-Op Diagnosis: grade 3 hemorrhoids and hepatic flexure polyp Anesthesia Technique: MAC Primary Surgeon: Caterina Gong Pathology: hepatic flexure polyp EBL in mLs: 0 Condition: Good
--- NOTE | 2018-11-03 12:11 | PCM.POSTAN ---
POST ANESTHESIA ASSESSMENT - MENTAL STATUS Mental Status: Alert, Oriented - RESPIRATORY Respiratory Status: Respiratory Rate WNL, Airway Patent, O2 Saturation Stable - CARDIOVASCULAR CV Status: Pulse Rate WNL, Blood Pressure Stable - GASTROINTESTINAL GI Status: No Symptoms - POST OP HYDRATION Hydration Status: Adequate & Stable - OBSERVATIONS Free Text/Narrative:: The patient tolerated the procedure well. There were no apparent anesthetic complications at this time.
[2018-11-03 12:21] VITALS: BP 112/62
--- NOTE | 2018-11-03 12:29 | PCM48HPAN ---
Post Anesthesia Note - EVALUATION WITHIN 48HRS OF ANESTHETIC Vital Signs in Normal Range: Yes Patient Participated in Evaluation: Yes Respiratory Function Stable: Yes Airway Patent: Yes Cardiovascular Function Stable: Yes Hydration Status Stable: Yes Pain Control Satisfactory: Yes Nausea and Vomiting Control Satisfactory: Yes Mental Status Recovered: Yes Resp Rate: 14 - COMMENTS/OBSERVATIONS Free Text/Narrative:: The patient has no complaints at this time. Discharge home per criteria.
--- NOTE | 2018-11-03 18:55 | OR ---
SURGEON: JOSE GUADALUPE RITTER MD DATE OF PROCEDURE: 11/03/2018 PREOPERATIVE DIAGNOSIS: Chronic constipation. POSTOPERATIVE DIAGNOSIS: Hepatic flexure polyp. PROCEDURE PERFORMED: Diagnostic colonoscopy. ANESTHESIA: MAC. INSTRUMENT USED: Olympus colonoscope. EXTENT OF EXAM: To the cecum. PREPARATION: Good. LIMITATIONS: None. INDICATION FOR EXAMINATION: The patient is a 32-year-old female who presents with complaints of chronic constipation. There is a family history of colon cancer as well. The decision was made to proceed with a diagnostic colonoscopy. I explained the procedure, expected perioperative course, and risks including bleeding, infection, or damage to surrounding structures including perforation. The patient verbalized understanding and wishes to proceed. PROCEDURE IN DETAIL: The patient was brought to the endoscopy suite and placed in the left lateral decubitus position. A time-out was completed verifying the patient's name, age, date of , allergies, and procedure to be performed. Monitored anesthesia care was induced and continuous oxygen was provided via nasal cannula throughout the procedure. After adequate sedation was achieved, a digital rectal exam was performed. This exam was within normal limits. A well-lubricated colonoscope was inserted in the rectum and advanced under direct visualization to the level of the cecum. The cecum was identified by both visual and anatomic landmarks. A photograph was taken of the cecal cap as well as with the scope retroflexed within the cecum. The scope was then straightened out and fully withdrawn while examining the color, texture, anatomy, and integrity of the mucosa from the cecum to the anal canal. The patient was found to have a small polyp within the proximal hepatic flexure. This was removed in piecemeal fashion using a cold biopsy forceps. The remainder of the colon appeared normal. The scope was then brought into the rectum and retroflexed to allow visualization of the anal canal opening. This appeared normal and a photograph was taken. The scope was then straightened out and fully withdrawn. The cecum to anus time was 12 minutes. The patient tolerated the procedure well and was taken to PACU in stable condition. ENDOSCOPIC DIAGNOSIS: Hepatic flexure polyp. RECOMMENDATIONS: We will follow up with the patient in clinic in 2 weeks regarding the pathology results of her polypectomy. Of note, the patient had a bradycardic episode in the preoperative area. She has been having fainting episodes at home. 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 STEWART / ELENI ALLEN: 11/03/2018 16:55:01 /[id number]
== END 2018-11-03 12:33 | disposition home or self-care (01) ==
LOC: MW.SDS 08:51
PROVIDERS: ATTEND Surgery
DX: D12.3 Benign neoplasm of transverse colon (principal); K64.2 Third degree hemorrhoids; I48.91 Unspecified atrial fibrillation; E66.01 Morbid (severe) obesity due to excess calories; Z68.34 Body mass index [BMI] 34.0-34.9, adult; Z79.899 Other long term (current) drug therapy; Z80.0 Family history of malignant neoplasm of digestive organs; Z87.891 Personal history of nicotine dependence; Z88.0 Allergy status to penicillin
CPT/HCPCS: 45380; 81025; 88305; J2001; J2250; J2704; J3010; J3490; J7120

== ENCOUNTER 2019-03-30 08:50 | Emergency (ER) | payer BC, OTHER ==
[2019-03-30] MEDS ORDERED: Sodium Chloride 0.9% 2.5 ML Syringe FLUSH PRN (09:13)
[2019-03-30] MEDS ORDERED: Sodium Chloride 0.9% 10 ML Syringe FLUSH PRN (09:13)
--- NOTE | 2019-03-30 09:19 | EDM.PDOC ---
ED HPI GENERAL MEDICAL PROBLEM - General Chief Complaint: Neurological Problem Stated Complaint: PT FELL AT HOME Time Seen by Provider: 03/30/19 09:02 Source of Information: Reports: Patient History Limitations: Reports: No Limitations - History of Present Illness INITIAL COMMENTS - FREE TEXT/NARRATIVE: History of present illness: []Patient has a history of SVT and has had rates in the 300s in the past. She is followed by Dr. Mullins and is on cardiac meds. She has been having seizures during these SVT episodes. A Holter monitor showed that they are lasting approximately 15 seconds. Sensation states she had 2 seizures back to back last night and fell and complains of a headache and right-sided neck and shoulder pain. She has an appointment with Dr. Brown on April 14. Review of systems: As per history of present illness and below otherwise all systems reviewed and negative. Past medical history: As per history of present illness and as reviewed below otherwise noncontributory. Surgical history: As per history of present illness and as reviewed below otherwise noncontributory. Social history: No reported history of drug or alcohol abuse. Family history: As per history of present illness and as reviewed below otherwise noncontributory. Physical exam: General: Well developed, well nourished in NAD HEENT: Atraumatic, normocephalic, pupils reactive, negative for conjunctival pallor or scleral icterus, mucous membranes moist, throat clear, neck supple, nontender, trachea midline. Lungs: Clear to auscultation, breath sounds equal bilaterally, chest nontender. Heart: S1S2, regular, negative for clicks, rubs, or JVD. Abdomen: NABS, Soft, nondistended, nontender. Negative for masses or hepatosplenomegaly. Negative for costovertebral tenderness. Pelvis: Stable nontender. Genitourinary: Deferred. Rectal: Deferred. Extremities: Atraumatic, negative for cords or calf pain. Neurovascular unremarkable. Neuro: Awake, alert, oriented. Cranial nerves II through XII unremarkable. Cerebellum unremarkable. Motor and sensory unremarkable throughout. Exam nonfocal. Skin:warm and dry Diagnostics: EKG-NSR, CT head and neck normal chest x-ray negative CBC, chemistry normal Therapeutics: Toradol ED Course: Stable Impression: Fall, head and neck pain, Possible seizures,h/o SVT, Prescriptions: None Plan: Take meds as directed, follow up with your primary care physician, return to ER if symptoms worsen or change. Definitive disposition and diagnosis as appropriate pending reevaluation and review of above. hEAD Pain Score (Numeric/FACES): 7 - Related Data Allergies Allergy/AdvReac Type Severity Reaction Status Date / Time Penicillins Allergy yeast Verified 03/30/19 08:56 infection Home Meds: Home Meds Propafenone HCl [Rythmol Sr] 425 mg PO BID 03/30/19 [History] Verapamil HCl [Verapamil ER Pm] 100 mg PO BEDTIME 03/30/19 [History] Past Medical History HEENT History: Reports: Other (See Below) Other HEENT History: wears glasses Cardiovascular History: Reports: Arrhythmia, Syncope, Other (See Below) Other Cardiovascular History: hx SVT. 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 Musculoskeletal History: Reports: None Neurological History: Reports: None Psychiatric History: Reports: Anxiety Endocrine/Metabolic History: Reports: Obesity/BMI 30+ Hematologic History: Reports: None Immunologic History: Reports: None Oncologic (Cancer) History: Reports: None Dermatologic History: Reports: None - Infectious Disease History Infectious Disease History: Reports: None - Past Surgical History Head Surgeries/Procedures: Reports: None Cardiovascular Surgical History: Reports: None Other Cardiovascular Surgeries/Procedures: Unsuccessful alation Respiratory Surgical History: Reports: None GI Surgical History: Reports: Cholecystectomy Female Surgical History: Reports: Section Endocrine Surgical History: Reports: None Neurological Surgical History: Reports: None Musculoskeletal Surgical History: Reports: None Oncologic Surgical History: Reports: None Dermatological Surgical History: Reports: None Social & Family History - Family History Family Medical History: Noncontributory - Tobacco Use Smoking Status *Q: Never Smoker - Caffeine Use Caffeine Use: Reports: Coffee - Recreational Drug Use Recreational Drug Use: No ED ROS GENERAL - Review of Systems Review Of Systems: See Below - Physical Exam Exam: See Below Course - Vital Signs Last Recorded V/S: Last Vital Signs Temp 97.3 F 03/30/19 08:56 Pulse 88 03/30/19 08:56 Resp 17 03/30/19 08:56 BP 112/72 03/30/19 08:56 Pulse Ox 98 03/30/19 08:56 - Orders/Labs/Meds Orders: Active Orders 24 hr Category Date Time Status Cardiac Monitoring [RC] . DIRECTED Care 03/30/19 09:13 Active EKG Documentation Completion [RC] STAT Care 03/30/19 09:13 Active Sodium Chloride 0.9% [Saline Flush] Med 03/30/19 09:13 Active 10 ml FLUSH ASDIRECTED PRN Sodium Chloride 0.9% [Saline Flush] Med 03/30/19 09:13 Active 2.5 ml FLUSH ASDIRECTED PRN Saline Lock Insert [OM.PC] Stat Oth 03/30/19 09:13 Ordered Medication Orders Sodium Chloride (Saline Flush) 10 ml FLUSH ASDIRECTED PRN PRN Reason: Keep Vein Open Sodium Chloride (Saline Flush) 2.5 ml FLUSH ASDIRECTED PRN PRN Reason: Keep Vein Open Labs: Laboratory Tests 03/30/19 03/30/19 Range/Units 09:06 09:06 WBC 5.90 (4.0-11.0) K/uL RBC 4.36 (4.30-5.90) M/uL Hgb 14.2 (12.0-16.0) g/dL Hct 41.6 (36.0-46.0) % MCV 95.4 (80.0-98.0) fL MCH 32.6 H (27.0-32.0) pg MCHC 34.1 (31.0-37.0) g/dL RDW Std Deviation 45.1 (28.0-62.0) fl RDW Coeff of Jarek 13 (11.0-15.0) % Plt Count 257 (150-400) K/uL MPV 10.40 (7.40-12.00) fL Neut % (Auto) 51.0 (48.0-80.0) % Lymph % (Auto) 38.3 (16.0-40.0) % Gila % (Auto) 6.8 (0.0-15.0) % Eos % (Auto) 3.2 (0.0-7.0) % Baso % (Auto) 0.7 (0.0-1.5) % Neut # (Auto) 3.0 (1.4-5.7) K/uL Lymph # (Auto) 2.3 (0.6-2.4) K/uL Gila # (Auto) 0.4 (0.0-0.8) K/uL Eos # (Auto) 0.2 (0.0-0.7) K/uL Baso # (Auto) 0.0 (0.0-0.1) K/uL Nucleated RBC % 0.0 /100WBC Nucleated RBCs # 0 K/uL Sodium 139 (136-145) mmol/L Potassium 3.5 (3.5-5.1) mmol/L Chloride 105 (98-107) mmol/L Carbon Dioxide 26.6 (21.0-32.0) mmol/L BUN 15 (7.0-18.0) mg/dL Creatinine 0.9 (0.6-1.0) mg/dL Est Cr Clr Drug Dosing 75.34 mL/min Estimated GFR (MDRD) > 60.0 ml/min Glucose 81 (74-106) mg/dL Calcium 9.5 (8.5-10.1) mg/dL Total Bilirubin 0.9 (0.2-1.0) mg/dL AST 20 (15-37) IU/L ALT 22 (14-63) IU/L Alkaline Phosphatase 44 L (46-116) U/L Total Protein 7.2 (6.4-8.2) g/dL Albumin 3.8 (3.4-5.0) g/dL Globulin 3.4 (2.6-4.0) g/dL Albumin/Globulin Ratio 1.1 (0.9-1.6) Meds: Medications Generic Name Dose Route Start Last Admin Trade Name Freq PRN Reason Stop Dose Admin Sodium Chloride 10 ml 03/30/19 09:13 Saline Flush FLUSH ASDIRECTED PRN Keep Vein Open Sodium Chloride 2.5 ml 03/30/19 09:13 Saline Flush FLUSH ASDIRECTED PRN Keep Vein Open Discontinued Medications Generic Name Dose Route Start Last Admin Trade Name Freq PRN Reason Stop Dose Admin Ketorolac Tromethamine 30 mg 03/30/19 10:23 Toradol IVPUSH 03/30/19 10:24 ONETIME ONE Departure - Departure Time of Disposition: 10:23 Disposition: Home, Self-Care 01 Condition: Good Clinical Impression: Head pain Qualifiers: Headache type: unspecified Headache chronicity pattern: unspecified pattern Intractability: not intractable Qualified Code(s): R51 - Headache Neck muscle strain Qualifiers: Encounter type: initial encounter Qualified Code(s): S16.1XXA - Strain of muscle, fascia and tendon at neck level, initial encounter - Discharge Information *PRESCRIPTION DRUG MONITORING PROGRAM REVIEWED*: Not Applicable *COPY OF PRESCRIPTION DRUG MONITORING REPORT IN PATIENT TATY: Not Applicable Referrals: Yarely De Jesus MD [Primary Care Provider] - Forms: ED Department Discharge Additional Instructions: The following information is given to patients seen in the emergency department who are being discharged to home. This information is to outline your options for follow-up care. We provide all patients seen in our emergency department with a follow-up referral. The need for follow-up, as well as the timing and circumstances, are variable depending upon the specifics of your emergency department visit. If you don't have a primary care physician on staff, we will provide you with a referral. We always advise you to contact your personal physician following an emergency department visit to inform them of the circumstance of the visit and for follow-up with them and/or the need for any referrals to a consulting specialist. The emergency department will also refer you to a specialist when appropriate. This referral assures that you have the opportunity for follow-up care with a specialist. All of these measure are taken in an effort to provide you with optimal care, which includes your follow-up. Under all circumstances we always encourage you to contact your private physician who remains a resource for coordinating your care. When calling for follow-up care, please make the office aware that this follow-up is from your recent emergency room visit. If for any reason you are refused follow-up, please contact the [facility] Emergency Department at and asked to speak to the emergency department charge nurse. Take meds as directed, follow up with your primary care physician, return to ER if symptoms worsen or change. [facility] [address] [place] [id number] - My Orders Last 24 Hours: My Active Orders 03/30/19 09:13 Cardiac Monitoring [RC] . DIRECTED EKG Documentation Completion [RC] STAT Sodium Chloride 0.9% [Saline Flush] 10 ml FLUSH ASDIRECTED PRN Sodium Chloride 0.9% [Saline Flush] 2.5 ml FLUSH ASDIRECTED PRN Saline Lock Insert [OM.PC] Stat - Assessment/Plan Last 24 Hours: My Active Orders 03/30/19 09:13 Cardiac Monitoring [RC] . DIRECTED EKG Documentation Completion [RC] STAT Sodium Chloride 0.9% [Saline Flush] 10 ml FLUSH ASDIRECTED PRN Sodium Chloride 0.9% [Saline Flush] 2.5 ml FLUSH ASDIRECTED PRN Saline Lock Insert [OM.PC] Stat
[2019-03-30 09:52] LABS: BLOOD UREA NITROGEN,BUN 15 mg/dL (7.0-18.0); CARBON DIOXIDE,CO2 26.6 mmol/L (21.0-32.0); CHLORIDE,CL 105 mmol/L (98-107); GLUCOSE RANDOM 81 mg/dL (74-106); POTASSIUM,K 3.5 mmol/L (3.5-5.1); SODIUM,NA 139 mmol/L (136-145)
--- NOTE | 2019-03-30 10:13 | CT ---
INDICATION: Patient had seizure last night and fell and hit head. COMPARISON: CT head without intravenous contrast 05/19/2018. TECHNIQUE: CT cervical spine without intravenous contrast; coronal and sagittal reformats. FINDINGS: No evidence of acute fracture or dislocation. Obliteration of the normal cervical lordosis. C1-C2 articulation is unremarkable. Lung apices are unremarkable. IMPRESSION: 1. No acute fracture or dislocation. 2. Negative CT cervical spine. Please note that all CT scans at this facility use dose modulation, iterative reconstruction, and/or weight-based dosing when appropriate to reduce radiation dose to as low as reasonably achievable. Dictated by Tricia Jones MD @ Mar 30 2019 10:05AM Signed by Dr. Tricia Jones @ Mar 30 2019 10:12AM
--- NOTE | 2019-03-30 10:15 | CT ---
INDICATION: Seizure; fell. COMPARISON: CT head 05/19/2018. TECHNIQUE: CT head without intravenous contrast; coronal and sagittal reformats. FINDINGS: No evidence of intracranial hemorrhage. No mass lesions. No evidence of shift of the midline structures. The calvarium is unremarkable. The ventricular system, the subarachnoid cisterns and the cerebral sulci are unremarkable. No interval change. Impression : Negative unenhanced head CT. Please note that all CT scans at this facility use dose modulation, iterative reconstruction, and/or weight-based dosing when appropriate to reduce radiation dose to as low as reasonably achievable. Dictated by Tricia Jones MD @ Mar 30 2019 10:12AM Signed by Dr. Tricia Jones @ Mar 30 2019 10:14AM
--- NOTE | 2019-03-30 10:17 | CR ---
INDICATION: Seizure; trauma. TECHNIQUE: Portable AP chest. FINDINGS: Normal size cardiac silhouette. Clear lung gómez with no evidence of acute pneumonic infiltrates or CHF. No pneumothorax or pleural effusion. Impression : Negative portable AP chest. Dictated by Tricia Jones MD @ Mar 30 2019 10:14AM Signed by Dr. Tricia Jones @ Mar 30 2019 10:15AM
[2019-03-30] MEDS ORDERED: Ketorolac 30 MG/ML SDV IVPUSH ONE (10:23)
[2019-03-30 10:44] VITALS: BP 98/58; PULSE 53
== END 2019-03-30 10:36 | disposition home or self-care (01) ==
LOC: MW.ED 08:50
DX: S16.1XXA Strain of muscle, fascia and tendon at neck level, initial encounter (principal); R51 Headache; E66.9 Obesity, unspecified; Z68.30 Body mass index [BMI] 30.0-30.9, adult; Z90.49 Acquired absence of other specified parts of digestive tract; Z88.0 Allergy status to penicillin; Z79.899 Other long term (current) drug therapy; W19.XXXA Unspecified fall, initial encounter
CPT/HCPCS: 36415; 70450; 70450-26; 71045; 71045-26; 72125; 72125-26; 80053; 85025; 93005; 99284; 99285-25

== ENCOUNTER 2019-07-12 04:46 | Emergency (ER) | payer BC, OTHER ==
--- NOTE | 2019-07-12 06:02 | EDM.PDOC ---
ED HPI GENERAL MEDICAL PROBLEM - General Chief Complaint: ENT Problem Stated Complaint: POSSIBLE STREP Time Seen by Provider: 07/12/19 05:57 History Limitations: Reports: No Limitations - History of Present Illness INITIAL COMMENTS - FREE TEXT/NARRATIVE: Has had a sore throat and fevers for the last couple days. Onset: Today Duration: Day(s): Severity: Mild Improves with: Reports: None Worsens with: Reports: None Associated Symptoms: Reports: No Other Symptoms Treatments IP TECHNOLOGY TRANSACTIONS ATTORNEY: Reports: Acetaminophen - Related Data Allergies Allergy/AdvReac Type Severity Reaction Status Date / Time Penicillins Allergy yeast Verified 07/12/19 04:49 infection Home Meds: Home Meds Propafenone HCl [Rythmol Sr] 425 mg PO BID 03/30/19 [History] Verapamil HCl [Verapamil ER Pm] 100 mg PO BEDTIME 03/30/19 [History] Past Medical History HEENT History: Reports: Other (See Below) Other HEENT History: wears glasses Cardiovascular History: Reports: Arrhythmia, Syncope, Other (See Below) Other Cardiovascular History: hx SVT. 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: x 2 Musculoskeletal History: Reports: None Neurological History: Reports: None Psychiatric History: Reports: Anxiety Endocrine/Metabolic History: Reports: Obesity/BMI 30+ Insulin Pump Model and Saw Maker: None Hematologic History: Reports: None Immunologic History: Reports: None Oncologic (Cancer) History: Reports: None Dermatologic History: Reports: None - Infectious Disease History Infectious Disease History: Reports: None - Past Surgical History Head Surgeries/Procedures: Reports: None Cardiovascular Surgical History: Reports: None Respiratory Surgical History: Reports: None GI Surgical History: Reports: Cholecystectomy Female Surgical History: Reports: Section Endocrine Surgical History: Reports: None Neurological Surgical History: Reports: None Musculoskeletal Surgical History: Reports: None Oncologic Surgical History: Reports: None Dermatological Surgical History: Reports: None Social & Family History - Family History Family Medical History: Noncontributory - Tobacco Use Smoking Status *Q: Never Smoker - Caffeine Use Caffeine Use: Reports: None - Recreational Drug Use Recreational Drug Use: No ED ROS ENT - Review of Systems Review Of Systems: Comprehensive ROS is negative, except as noted in HPI. Constitutional: Reports: Fever, Weakness. Denies: Chills, Night Sweats, Diaphoresis, Decreased Appetite HEENT: Reports: Throat Pain. Denies: Eye Discharge, Eye Pain, Glasses, Hearing Loss, Nose Pain, Rhinitis, Sinus Problem, Vertigo, Vision Change Respiratory: Reports: No Symptoms Cardiovascular: Reports: No Symptoms Endocrine: Reports: No Symptoms GI/Abdominal: Reports: No Symptoms : Reports: No Symptoms Musculoskeletal: Reports: No Symptoms Skin: Reports: No Symptoms Neurological: Reports: No Symptoms Psychiatric: Reports: No Symptoms Hematologic/Lymphatic: Reports: No Symptoms Immunologic: Reports: No Symptoms ED EXAM, ENT - Physical Exam Exam: See Below Text/Narrative:: -year-old female with swelling and pain in her throat. HEENT i: The patient has redness and swelling, positive lymphadenopathy Chest: S1-S2 normal Lungs : clear Exam Limited By: No Limitations General Appearance: Alert, WD/WN, No Apparent Distress Eye Exam: Bilateral Eye: Normal Fundi, Normal Inspection Ears: Normal External Exam, Normal Canal, Hearing Grossly Normal, Normal TMs Nose: Normal Inspection, Normal Mucousa Mouth/Throat: Normal Inspection, Normal Gums, Normal Lips, Throat Pain, Throat Swelling Head: Atraumatic, Normocephalic Neck: Normal Inspection, Supple, Non-Tender Respiratory/Chest: No Respiratory Distress, Lungs Clear, No Accessory Muscle Use Cardiovascular: Normal Peripheral Pulses GI/Abdominal: Normal Bowel Sounds, Soft, Non-Tender Back: Normal Inspection Extremities: Normal Inspection Neurological: Alert, Oriented Psychiatric: Other Skin: Warm, Dry Lymphatic: No Adenopathy Course - Vital Signs Text/Narrative:: 33-year-old female presents with throat pain Patient end up having positive strep will be treated for strep. Patient will be treated with Amoxicillin . The yeast infection is not a true allergy Last Recorded V/S: Last Vital Signs Temp 97.5 F 07/12/19 05:00 Pulse 70 07/12/19 05:00 Resp 18 07/12/19 05:00 BP 125/70 07/12/19 05:00 Pulse Ox 96 07/12/19 05:00 Departure - Departure Time of Disposition: 06:05 Disposition: Home, Self-Care 01 Condition: Good Clinical Impression: Strep pharyngitis - Discharge Information Instructions: Strep Throat Referrals: PCP,None [Primary Care Provider] - Sepsis Event Note - Evaluation Sepsis Screening Result: No Definite Risk - Focused Exam Vital Signs: Vital Signs Temp Pulse Resp BP Pulse Ox 07/12/19 05:00 97.5 F 70 18 125/70 96 Date Exam was Performed: 07/12/19 Time Exam was Performed: 05:57
[2019-07-12] MEDS: Amoxicillin 500 MG Cap PO ONE (06:18)
[2019-07-12 06:20] VITALS: BP 114/74; PULSE 63
== END 2019-07-12 06:25 | disposition home or self-care (01) ==
LOC: MW.ED 04:46
DX: J02.0 Streptococcal pharyngitis (principal); I48.91 Unspecified atrial fibrillation; E66.9 Obesity, unspecified; Z88.0 Allergy status to penicillin; Z79.899 Other long term (current) drug therapy
CPT/HCPCS: 87804; 87880; 99283; A9270; 99282

== ENCOUNTER 2019-09-19 16:47 | Emergency (ER) | payer BC ==
[2019-09-19] MEDS ORDERED: Adenosine 6 MG/2 ML SDV IVPUSH ONE (16:55)
[2019-09-19] MEDS ORDERED: Adenosine 6 MG/2 ML SDV ONE ×2 (16:55→17:00)
[2019-09-19] MEDS ORDERED: Sodium Chloride 0.9% 500 ML IV SCH (17:00)
[2019-09-19] MEDS ORDERED: LORazepam 2 MG/ML SDV IVPUSH ONE (17:24)
[2019-09-19 17:42] LABS: BLOOD UREA NITROGEN,BUN 15 mg/dL (7.0-18.0); CARBON DIOXIDE,CO2 27.2 mmol/L (21.0-32.0); CHLORIDE,CL 105 mmol/L (98-107); GLUCOSE RANDOM 95 mg/dL (74-106); POTASSIUM,K 3.6 mmol/L (3.5-5.1); SODIUM,NA 141 mmol/L (136-145)
[2019-09-19] MEDS ORDERED: Potassium Chloride 10% 20 MEQ/15 ML Soln 30 ML UD Cup PO ONE (17:57)
--- NOTE | 2019-09-19 18:30 | EDM.PDOC ---
ED [facility] GENERAL MEDICAL PROBLEM - General Chief Complaint: Cardiovascular Problem Stated Complaint: HEART PROBLEM Time Seen by Provider: 09/19/19 16:54 - History of Present Illness INITIAL COMMENTS - FREE TEXT/NARRATIVE: HPI 33-year-old female with history of SVT on verapamil 100 mg q.h.s. and Propafenone 425 mg bid presents with one hour of palpitations. Denies chest pain , shortness breath, history of DVT or PE. Patient reports compliance with her medications. Patient reports that she has had to have multiple prior adenosine cardioversions. Patient notes that she missed her medications yesterday. M/S/F/SocHx notable for: please see HPI; remainder reviewed with patient and in chart. ROS: Negative constitutional, eye, cardiovascular, pulmonary, GI, , MSK, skin , neurologic, psychiatric, endocrine unless noted in the HPI. Exam Gen: Pleasant, non-toxic appearing, resting comfortably. HEENT: NC, AT, PEERL, EOMI. Resp: Clear to auscultation bilaterally, normal work of breathing, no accessory muscle usage. Card: Regular rate and rhythm with no murmurs, rubs, or gallops, extremities warm and well perfused. GI: Non-tender to palpation throughout all quadrants, no focal tenderness at McBurney's point, negative Cary's sign, non-distended, no rebound or guarding. : No suprapubic tenderness to palpation. MSK: No visible deformities, strength and tone without visually appreciable deficit. Skin: Normal color with no visible lesions. Neuro: alert and oriented 3, no facial asymmetry, vision and hearing WNL. Psych: Mood and affect appropriate. Labs / Imaging: WBC 8.2, HB 14.5, sodium 141, potassium 3.6, magnesium 2.2, hCG negative, TSH 0.93. hCG negative EKG (4:50 PM) SVT 170 bpm with infrequent SR segments. EKG (5:04 PM) SVT 162 bpm. EKG (5:07 PM) SR 70 bpm, APCs present, no ST segment elevations or depressions, no LBBB. EKG (5:18 PM): SR 75 bpm, no ST segment elevations or depressions. MDM Previous chart, nursing note, labs, imaging, and vitals reviewed. A: 33-year-old female with history of SVT on verapamil 100 mg q.h.s. and Propafenone 425 mg bid presents with one hour of palpitations. DDx: SVT, dehydration, electrolyte abnormalities, hyperthyroidism, medication noncompliance. Evaluation: [patient SVT, spontaneously converted with IV fluids. Mildly low potassium. Patient instructed to increase potassium intake. Patient with marked anxiety, 0.5 mg Ativan given. Patient had resolution symptoms and remained in sinus rhythm. TSH WNL. Suspect medication noncompliance may have contributed to todays event. Recommend ongoing compliance with the patients prescribed regimen. Impression: SVT, medication noncompliance. - Related Data Allergies Allergy/AdvReac Type Severity Reaction Status Date / Time Penicillins Allergy yeast Verified 09/19/19 16:58 infection Home Meds: Home Meds Propafenone HCl [Rythmol Sr] 425 mg PO BID 03/30/19 [History] Verapamil HCl [Verapamil ER Pm] 100 mg PO BEDTIME 03/30/19 [History] Amoxicillin 500 mg PO Q8HR 10 Days #30 capsule 07/12/19 [Rx] Fluconazole [Diflucan] 150 mg PO ONETIME PRN #2 tab 07/12/19 [Rx] Past Medical History HEENT History: Reports: Other (See Below) Other HEENT History: wears glasses Cardiovascular History: Reports: Arrhythmia, Syncope, Other (See Below) Other Cardiovascular History: hx SVT. 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 Hematologic History: Reports: None Immunologic History: Reports: None Oncologic (Cancer) History: Reports: None Dermatologic History: Reports: None - Infectious Disease History Infectious Disease History: Reports: Chicken Pox - Past Surgical History Head Surgeries/Procedures: Reports: None Cardiovascular Surgical History: Reports: None Respiratory Surgical History: Reports: None GI Surgical History: Reports: Cholecystectomy Female Surgical History: Reports: Section Endocrine Surgical History: Reports: None Neurological Surgical History: Reports: None Musculoskeletal Surgical History: Reports: None Oncologic Surgical History: Reports: None Dermatological Surgical History: Reports: None Social & Family History - Family History Family Medical History: Noncontributory - Tobacco Use Smoking Status *Q: Unknown Ever Smoked - Caffeine Use Caffeine Use: Reports: None ED ROS GENERAL - Review of Systems Review Of Systems: See Below ED EXAM, GENERAL - Physical Exam Exam: See Below Course - Vital Signs Last Recorded V/S: Last Vital Signs Temp 36.4 C 09/19/19 16:48 Pulse 69 09/19/19 17:26 Resp 22 H 09/19/19 17:26 BP 115/85 09/19/19 17:26 Pulse Ox 100 09/19/19 17:26 - Orders/Labs/Meds Orders: Active Orders 24 hr Category Date Time Status EKG 12 Lead [EKG Documentation Completion] [RC] STAT Care 09/19/19 16:56 Active Sodium Chloride 0.9% [Normal Saline] 500 ml Med 09/19/19 17:00 Active IV .BOLUS Medication Orders Sodium Chloride (Normal Saline) 500 mls @ 1,000 mls/hr IV .BOLUS SOLIS Last Admin: 09/19/19 17:33 Dose: 1,000 mls/hr Labs: Laboratory Tests 09/19/19 09/19/19 09/19/19 Range/Units 17:00 17:00 17:00 WBC 8.23 (4.0-11.0) K/uL RBC 4.35 (4.30-5.90) M/uL Hgb 14.5 (12.0-16.0) g/dL Hct 42.7 (36.0-46.0) % MCV 98.2 H (80.0-98.0) fL MCH 33.3 H (27.0-32.0) pg MCHC 34.0 (31.0-37.0) g/dL RDW Std Deviation 44.9 (28.0-62.0) fl RDW Coeff of Jarek 12 (11.0-15.0) % Plt Count 330 (150-400) K/uL MPV 10.00 (7.40-12.00) fL Neut % (Auto) 45.9 L (48.0-80.0) % Lymph % (Auto) 41.9 H (16.0-40.0) % Comal % (Auto) 10.0 (0.0-15.0) % Eos % (Auto) 1.7 (0.0-7.0) % Baso % (Auto) 0.5 (0.0-1.5) % Neut # (Auto) 3.8 (1.4-5.7) K/uL Lymph # (Auto) 3.5 H (0.6-2.4) K/uL Comal # (Auto) 0.8 (0.0-0.8) K/uL Eos # (Auto) 0.1 (0.0-0.7) K/uL Baso # (Auto) 0.0 (0.0-0.1) K/uL Nucleated RBC % 0.0 /100WBC Nucleated RBCs # 0 K/uL Sodium 141 (136-145) mmol/L Potassium 3.6 (3.5-5.1) mmol/L Chloride 105 (98-107) mmol/L Carbon Dioxide 27.2 (21.0-32.0) mmol/L BUN 15 (7.0-18.0) mg/dL Creatinine 0.9 (0.6-1.0) mg/dL Est Cr Clr Drug Dosing 75.34 mL/min Estimated GFR (MDRD) > 60.0 ml/min Glucose 95 (74-106) mg/dL Calcium 9.4 (8.5-10.1) mg/dL Magnesium 2.2 (1.8-2.4) mg/dL TSH 3rd Generation 0.93 (0.36-3.74) uIU/mL HCG, Qual NEGATIVE (NEG) Meds: Medications Generic Name Dose Route Start Last Admin Trade Name Freq PRN Reason Stop Dose Admin Sodium Chloride 500 mls @ 1,000 mls/hr 09/19/19 17:00 09/19/19 17:33 Normal Saline IV 1,000 mls/hr .BOLUS SOLIS Administration Discontinued Medications Generic Name Dose Route Start Last Admin Trade Name Freq PRN Reason Stop Dose Admin Adenosine Confirm 09/19/19 16:55 09/19/19 17:24 Adenocard Administered 09/19/19 16:56 Not Given Dose 6 mg .ROUTE .STK-MED ONE Adenosine 6 mg 09/19/19 16:55 09/19/19 17:23 Adenocard IVPUSH 09/19/19 16:56 Not Given NOW ONE Adenosine 12 mg 09/19/19 16:55 09/19/19 17:21 Adenoscan IVPUSH 09/19/19 16:56 Not Given ONETIME ONE Adenosine Confirm 09/19/19 17:00 09/19/19 17:23 Adenocard Administered 09/19/19 17:01 Not Given Dose 12 mg .ROUTE .STK-MED ONE Lorazepam 0.5 mg 09/19/19 17:24 09/19/19 17:32 Ativan IVPUSH 09/19/19 17:25 0.5 mg ONETIME ONE Administration Potassium Chloride 40 meq 09/19/19 17:57 Potassium Chloride PO 09/19/19 17:58 ONETIME ONE Departure - Departure Time of Disposition: 18:28 Disposition: Home, Self-Care 01 Clinical Impression: SVT (supraventricular tachycardia) Referrals: PCP,None [Primary Care Provider] - Additional Instructions: You were in seen in the [facility] Emergency Department for evaluation of a racing heart, you were found to be and supraventricular tachycardia. You were also found to have mildly low potassium. Please increase your intake of potassium rich foods such as oranges, avocados, and penis. Please take your medications as prescribed. Please follow-up with your primary care physician or your air pollution auditor within 2-3 days. Please read and follow all of the instructions below. When calling for follow-up care, please make the office aware that this follow- up is from your recent emergency room visit. If for any reason you are refused follow-up, please contact the [facility] Emergency Department at and asked to speak to the emergency department charge nurse. Your care today was limited to identifying and treating emergent medical problems only. Many people have subtle differences in their test results that require follow up with their outpatient physician(s) to correctly determine if this represents a normal variation or concerning abnormality with respect to your specific health. The care given to you today was limited to identifying and treating emergent medical problems - you need to request a copy of all of your medical records from today's visit and follow up with your outpatient physician(s) to review both today's visit and your overall health. If you have any new symptoms or if you are at all concerned about your health please return immediately to the emergency department. Prescriptions: If you are uninsured or have financial difficulties with filling your prescription(s), you may consider using a free pharmacy discount service such as [employer] ([employer]) or [employer] ([facility]). These services allow you to search for a medication on your phone (or computer) and obtain a coupon that usually has a significant discount from the list sahni at a pharmacy. Your physician as well as [facility] does not have a financial relationship with either of these services. You may also wish to speak with your physician to determine if lower cost prescriptions are possible. Obtaining primary care: 1. [facility] provides pediatrics (children), family medicine (children, adults, and some obstetrical care), and internal medicine (adults). Further specialty care is also available. Same day appointments are available. They may be contacted at [phone] and are open Friday through Friday 8 AM to 5 PM. The [facility] are located at [facility], [address] [place] [address] 58. 2. [facility] offers family medicine, internal medicine, women health, and further specialty care. [facility] may be contacted at [phone]. [facility] is located at [address] [place], [place] [id number]. 3. If you have health insurance, please also contact your insurer for a list of accepting providers under your policy, you may contact these providers for further health care. Occupational health: Work related injuries may consider following up with [facility], . Occupational health services are located at [address] [place] [id number] and are open Friday through Friday from 7: 30 am to 5:00 pm. Obstetrical and Gynecological Care: [facility], , Friday through Friday 8 AM to 5 PM. [address] [place] [id number]. Eyecare: If you have an eye injury you should follow up with your wooden boat builder or with [facility], at [phone] or [phone] , they are located at [address] [place] [address]. Dental Care Luis A Hernandez DDS. [address] [facility] [place], [place]. Ph. [phone] Andrei Hernandez DDS MS. [address] [facility] [address], [place], [place]. Ph. Jonny Inman DDS. 10 07/[address] [place] [address], [place], [place]. Ph. [phone] Dwayne Bustamante DDS. [address] [facility] [address] [place], [place]. Ph. [phone] Wagner Waddell DDS PC. [address] [facility] [address] [place], [place]. Ph. [phone] Maricruz Long DDS. [address] [facility]. Ph. [phone] [facility]. [address] [place], [place]. Ph. [phone] [facility]. [address] [place] [address], [place], [place]. Ph. [phone] [facility] [address] [place] [address]. Ph. [phone] [facility]. [address] [place] [address] [address] [place], [place]. Ph. [phone] [facility]. [address] [place], [place]. Ph. Sepsis Event Note - Evaluation Sepsis Screening Result: No Definite Risk - Focused Exam Vital Signs: Vital Signs Temp Pulse Resp BP Pulse Ox 09/19/19 17:26 69 22 H 115/85 100 09/19/19 16:48 36.4 C 150 H 18 142/121 H 100 Date Exam was Performed: 09/19/19 Time Exam was Performed: 18:27 - My Orders Last 24 Hours: My Active Orders 09/19/19 16:56 EKG 12 Lead [EKG Documentation Completion] [RC] STAT 09/19/19 17:00 Sodium Chloride 0.9% [Normal Saline] 500 ml IV .BOLUS - Assessment/Plan Last 24 Hours: My Active Orders 09/19/19 16:56 EKG 12 Lead [EKG Documentation Completion] [RC] STAT 09/19/19 17:00 Sodium Chloride 0.9% [Normal Saline] 500 ml IV .BOLUS
[2019-09-19] MEDS ORDERED: LORazepam 1 MG Tab PO ONE (18:37)
[2019-09-19 18:58] VITALS: BP 131/88; PULSE 54
== END 2019-09-19 19:09 | disposition home or self-care (01) ==
LOC: MW.ED 16:47
DX: I47.1 Supraventricular tachycardia (principal); I48.91 Unspecified atrial fibrillation; E66.9 Obesity, unspecified; Z68.24 Body mass index [BMI] 24.0-24.9, adult; Z88.0 Allergy status to penicillin; Z79.899 Other long term (current) drug therapy
CPT/HCPCS: 36415; 80048; 83735; 84443; 84703; 85025; 93005; 96374; 99285; A9270; J2060; J7040; 99284

== ENCOUNTER 2019-12-21 10:58 | Emergency (ER) | payer BC ==
--- NOTE | 2019-12-21 11:23 | EDM.PDOC ---
ED HPI GENERAL MEDICAL PROBLEM - General Chief Complaint: Head Injury Stated Complaint: BLURRY VISION, AND PAIN IN NECK Time Seen by Provider: 12/21/19 11:13 - History of Present Illness INITIAL COMMENTS - FREE TEXT/NARRATIVE: 34-year-old female with history of SVT, atrial fibrillation presents with head pain after fall. 2 days ago she blacked out with no precipitating symptoms and hit the back of her head on hard concrete, she currently complains of blurred vision, neck pain, headache in the back of her head. Associated with one episode of vomiting Friday night. She denies chest pain, fever, chills, cough, shortness of breath, palpitations. She is currently taking propafenone and verapamil. She is not on aspirin. ROS: A 10-point review of systems, other than pertinent positives and negatives as stated per HPI, is otherwise negative PHYSICAL EXAM General: AOx4, GCS = 15, No distress HEENT: dry mucous membrane, NC/AT, no raccoon sign, barrera sign, hemotympanum, otorrhea, rhinorrhea. Neck: C-spine ttp, bilateral upper trapezius tender to palpation. Cardiac: S1S2 irregular rhythm. Respiratory: CTAB, no crackles or rales, no wheezing Abdomen: Soft, nontender, no rebound or guarding, nondistended, no pulsatile mass. Back: nontender Musculoskeletal: NVI distally, no deformity Neuro: No focal deficits MEDICAL DECISION MAKING: I reviewed the patients past medical records, lab and radiographic findings. I discussed the case with family members. My differential diagnosis included: Cervical spine injury, scalp hematoma, electrolyte abnormality, ACS. Patient's CT scan of the head and C-spine did not reveal any acute abnormalities warranting trauma activation. Electrolytes are unremarkable, EKG and chest x-ray did not reveal any underlying abnormalities. I believe she is stable for outpatient follow-up with Dr. Mullins neck Pain Score (Numeric/FACES): 10 - Related Data Allergies Allergy/AdvReac Type Severity Reaction Status Date / Time Penicillins Allergy yeast Verified 12/21/19 11:09 infection Home Meds: Home Meds Propafenone HCl [Rythmol Sr] 425 mg PO BID 03/30/19 [History] Verapamil HCl [Verapamil ER Pm] 100 mg PO BEDTIME 03/30/19 [History] Naproxen [Naprosyn] 500 mg PO Q12HR #10 tab 12/21/19 [Rx] Past Medical History HEENT History: Reports: Other (See Below) Other HEENT History: wears glasses Cardiovascular History: Reports: Arrhythmia, Syncope, Other (See Below) Other Cardiovascular History: hx SVT. 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 Hematologic History: Reports: None Immunologic History: Reports: None Oncologic (Cancer) History: Reports: None Dermatologic History: Reports: None - Infectious Disease History Infectious Disease History: Reports: Chicken Pox, Shingles - Past Surgical History Head Surgeries/Procedures: Reports: None HEENT Surgical History: Reports: None Cardiovascular Surgical History: Reports: None Respiratory Surgical History: Reports: None GI Surgical History: Reports: Cholecystectomy Female Surgical History: Reports: Section Endocrine Surgical History: Reports: None Neurological Surgical History: Reports: None Musculoskeletal Surgical History: Reports: None Oncologic Surgical History: Reports: None Dermatological Surgical History: Reports: None Social & Family History - Family History Family Medical History: Noncontributory - Tobacco Use Smoking Status *Q: Current Every Day Smoker Years of Tobacco use: 20 Packs/Tins Daily: 0.2 - Caffeine Use Caffeine Use: Reports: None - Recreational Drug Use Recreational Drug Use: No ED ROS GENERAL - Review of Systems Review Of Systems: See Below (see dictation) ED EXAM, HEAD INJURY - Physical Exam Exam: See Below (see dictation) EKG INTERPRETATION EKG Interpretation Comments: 62 Bpm, NSR, normal QRS interval, no STEMI. EKG and rhythm strip interpreted by me at 1144 Course - Vital Signs Last Recorded V/S: Last Vital Signs Temp 96.4 F L 12/21/19 11:07 Pulse 62 12/21/19 11:07 Resp 18 12/21/19 11:07 BP 121/79 12/21/19 11:07 Pulse Ox 100 12/21/19 11:07 - Orders/Labs/Meds Orders: Active Orders 24 hr Category Date Time Status Cardiac Monitoring [RC] . DIRECTED Care 12/21/19 11:19 Active Cervical Strap [Immobilizer] [RC] ASDIRECTED Care 12/21/19 11:20 Active EKG Documentation Completion [RC] STAT Care 12/21/19 11:19 Active Pulse Oximetry [RC] ASDIRECTED Care 12/21/19 11:19 Active Labs: Laboratory Tests 12/21/19 12/21/19 Range/Units 11:37 11:37 WBC 6.60 (4.0-11.0) K/uL RBC 3.95 L (4.30-5.90) M/uL Hgb 13.0 (12.0-16.0) g/dL Hct 38.8 (36.0-46.0) % MCV 98.2 H (80.0-98.0) fL MCH 32.9 H (27.0-32.0) pg MCHC 33.5 (31.0-37.0) g/dL RDW Std Deviation 44.2 (28.0-62.0) fl RDW Coeff of Jarek 12 (11.0-15.0) % Plt Count 261 (150-400) K/uL MPV 9.90 (7.40-12.00) fL Neut % (Auto) 61.2 (48.0-80.0) % Lymph % (Auto) 31.8 (16.0-40.0) % Giles % (Auto) 5.6 (0.0-15.0) % Eos % (Auto) 1.1 (0.0-7.0) % Baso % (Auto) 0.3 (0.0-1.5) % Neut # (Auto) 4.0 (1.4-5.7) K/uL Lymph # (Auto) 2.1 (0.6-2.4) K/uL Giles # (Auto) 0.4 (0.0-0.8) K/uL Eos # (Auto) 0.1 (0.0-0.7) K/uL Baso # (Auto) 0.0 (0.0-0.1) K/uL Nucleated RBC % 0.0 /100WBC Nucleated RBCs # 0 K/uL Sodium 141 (136-145) mmol/L Potassium 3.4 L (3.5-5.1) mmol/L Chloride 105 (98-107) mmol/L Carbon Dioxide 27.2 (21.0-32.0) mmol/L BUN 20 H (7.0-18.0) mg/dL Creatinine 0.9 (0.6-1.0) mg/dL Est Cr Clr Drug Dosing 77.76 mL/min Estimated GFR (MDRD) > 60.0 ml/min Glucose 89 (74-106) mg/dL Calcium 8.2 L (8.5-10.1) mg/dL Total Bilirubin 1.0 (0.2-1.0) mg/dL AST 25 (15-37) IU/L ALT 26 (14-63) IU/L Alkaline Phosphatase 52 (46-116) U/L Troponin I < 0.050 (0.000-0.056) ng/mL Total Protein 6.4 (6.4-8.2) g/dL Albumin 3.4 (3.4-5.0) g/dL Globulin 3.0 (2.6-4.0) g/dL Albumin/Globulin Ratio 1.1 (0.9-1.6) Departure - Departure Time of Disposition: 13:23 Disposition: Home, Self-Care 01 Condition: Good Clinical Impression: Scalp contusion, Syncope - Discharge Information *PRESCRIPTION DRUG MONITORING PROGRAM REVIEWED*: Not Applicable *COPY OF PRESCRIPTION DRUG MONITORING REPORT IN PATIENT TATY: Not Applicable Prescriptions: Naproxen [Naprosyn] 500 mg PO Q12HR #10 tab Instructions: Contusion, [id number], Syncope, [id number] Referrals: Yarely De Jesus MD [Primary Care Provider] - 3 Days Forms: ED Department Discharge Additional Instructions: The following information is given to patients seen in the emergency department who are being discharged to home. This information is to outline your options for follow-up care. We provide all patients seen in our emergency department with a follow-up referral. The need for follow-up, as well as the timing and circumstances, are variable depending upon the specifics of your emergency department visit. If you don't have a primary care physician on staff, we will provide you with a referral. We always advise you to contact your personal physician following an emergency department visit to inform them of the circumstance of the visit and for follow-up with them and/or the need for any referrals to a consulting specialist. The emergency department will also refer you to a specialist when appropriate. This referral assures that you have the opportunity for follow-up care with a specialist. All of these measure are taken in an effort to provide you with optimal care, which includes your follow-up. Under all circumstances we always encourage you to contact your private physician who remains a resource for coordinating your care. When calling for follow-up care, please make the office aware that this follow-up is from your recent emergency room visit. If for any reason you are refused follow-up, please contact the [facility] Emergency Department at and asked to speak to the emergency department charge nurse. Sepsis Event Note (ED) - Evaluation Sepsis Screening Result: No Definite Risk - Focused Exam Vital Signs: Vital Signs Temp Pulse Resp BP Pulse Ox 12/21/19 11:07 96.4 F L 62 18 121/79 100 - My Orders Last 24 Hours: My Active Orders 12/21/19 11:19 Cardiac Monitoring [RC] . DIRECTED EKG Documentation Completion [RC] STAT Pulse Oximetry [RC] ASDIRECTED 12/21/19 11:20 Cervical Strap [Immobilizer] [RC] ASDIRECTED - Assessment/Plan Last 24 Hours: My Active Orders 12/21/19 11:19 Cardiac Monitoring [RC] . DIRECTED EKG Documentation Completion [RC] STAT Pulse Oximetry [RC] ASDIRECTED 12/21/19 11:20 Cervical Strap [Immobilizer] [RC] ASDIRECTED
[2019-12-21 12:16] LABS: BLOOD UREA NITROGEN,BUN 20 mg/dL (7.0-18.0); CARBON DIOXIDE,CO2 27.2 mmol/L (21.0-32.0); CHLORIDE,CL 105 mmol/L (98-107); GLUCOSE RANDOM 89 mg/dL (74-106); POTASSIUM,K 3.4 mmol/L (3.5-5.1); SODIUM,NA 141 mmol/L (136-145)
--- NOTE | 2019-12-21 12:22 | CR ---
Chest: Portable view of the chest was obtained. Comparison: Prior chest x-ray of 03/30/19 Heart size and mediastinum are within normal limits for portable technique. Lungs are clear with no acute parenchymal change. Bony structures are grossly intact. Impression: 1. Nothing acute is seen on portable chest x-ray. Diagnostic code #1 This report was dictated in MDT
--- NOTE | 2019-12-21 12:33 | CT ---
CT cervical spine Technique: Multiple axial sections through the cervical spine were obtained from above C1 inferiorly to the mid T4 level. Reconstructed coronal and sagittal images were obtained. Comparison: Prior CT cervical spine study of 03/30/19. Findings: Mild scattered disc space narrowing throughout the cervical spine is noted. Vertebral body heights are maintained. Mild posterior osteophytes are seen at C5-6. No bony central or bony neural foraminal stenosis is seen. Slightly abnormal cervical curvature is seen believed to be degenerative in etiology. No subluxation is seen. Impression: 1. Mild degenerative change. 2. Slightly abnormal cervical curvature most likely degenerative in etiology. 3. Nothing acute is appreciated on CT cervical spine study. Diagnostic code #2 This report was dictated in MDT
--- NOTE | 2019-12-21 12:33 | CT ---
Head CT Technique: Multiple axial sections through the brain were obtained. Intravenous contrast was not utilized. Comparison: Prior head CT study of 03/30/19. Findings: Ventricles along with basal cisterns and sulci over the convexities appear within normal limits for the patient's age. No abnormal parenchymal densities are seen. No evidence of intracranial hemorrhage. No midline shift or mass-effect is seen. Bone window settings were reviewed. No acute calvarial finding is seen. Visualized paranasal sinuses and mastoid sinuses show nothing acute. Impression: 1. Nothing acute is appreciated on noncontrast head CT study. Diagnostic code #1 This report was dictated in MDT
[2019-12-21 13:50] VITALS: BP 116/71; PULSE 59
== END 2019-12-21 13:50 | disposition home or self-care (01) ==
LOC: MW.ED 10:58
DX: S00.03XA Contusion of scalp, initial encounter (principal); R55 Syncope and collapse; E66.9 Obesity, unspecified; I48.91 Unspecified atrial fibrillation; F17.210 Nicotine dependence, cigarettes, uncomplicated; Z88.0 Allergy status to penicillin; Z79.899 Other long term (current) drug therapy; Z68.24 Body mass index [BMI] 24.0-24.9, adult; W01.10XA Fall on same level from slipping, tripping and stumbling with subsequent striking against unspecified object, initial encounter
CPT/HCPCS: 36415; 70450; 70450-26; 71045; 71045-26; 72125; 72125-26; 80053; 84484; 85025; 93005; 99283; 99284-25

== ENCOUNTER 2020-04-04 10:41 | Observation (INO) | payer BC, OTHER ==
[2020-04-04] MEDS ORDERED: Sodium Chloride 0.9% 2.5 ML Syringe FLUSH PRN (10:49)
[2020-04-04] MEDS ORDERED: Sodium Chloride 0.9% 10 ML Syringe FLUSH PRN (10:49)
--- NOTE | 2020-04-04 11:06 | EDM.PDOC ---
ED HPI GENERAL MEDICAL PROBLEM - General Chief Complaint: Drug or Alcohol Abuse Stated Complaint: EMS ARRIVAL Time Seen by Provider: 04/04/20 10:50 - History of Present Illness INITIAL COMMENTS - FREE TEXT/NARRATIVE: 34-year-old female with a history that is most notable for frequent presentations for SVT on verapamil as well as propafenone and lorazepam as well who presents with lorazepam overdose. Approximately 30 minutes prior to arrival the patient was witnessed by her friends to take 17.5 mg lorazepam tablets. She reportedly told her friends that "it is my only way out." There is no history of any other coingestions patient is quite somnolent and unable to provide additional history. - Related Data Allergies Allergy/AdvReac Type Severity Reaction Status Date / Time Penicillins Allergy yeast Verified 12/21/19 11:09 infection Home Meds: Home Meds Propafenone HCl [Rythmol Sr] 425 mg PO BID 03/30/19 [History] Verapamil HCl [Verapamil ER Pm] 100 mg PO BEDTIME 03/30/19 [History] LORazepam [Lorazepam] 0.5 mg PO Q6H 04/04/20 [History] Past Medical History HEENT History: Reports: Other (See Below) Other HEENT History: wears glasses Cardiovascular History: Reports: Arrhythmia, Syncope, Other (See Below) Other Cardiovascular History: hx SVT. 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 Musculoskeletal History: Reports: None Neurological History: Reports: None Psychiatric History: Reports: Anxiety Endocrine/Metabolic History: Reports: Obesity/BMI 30+ Insulin Pump Model and Geology Scientist: None Hematologic History: Reports: None Immunologic History: Reports: None Oncologic (Cancer) History: Reports: None Dermatologic History: Reports: None - Infectious Disease History Infectious Disease History: Reports: Chicken Pox, Shingles - Past Surgical History Head Surgeries/Procedures: Reports: None HEENT Surgical History: Reports: None Cardiovascular Surgical History: Reports: None Respiratory Surgical History: Reports: None GI Surgical History: Reports: Cholecystectomy Female Surgical History: Reports: Section Endocrine Surgical History: Reports: None Neurological Surgical History: Reports: None Musculoskeletal Surgical History: Reports: None Oncologic Surgical History: Reports: None Dermatological Surgical History: Reports: None Social & Family History - Family History Family Medical History: Noncontributory - Caffeine Use Caffeine Use: Reports: None ED ROS GENERAL - Review of Systems Review Of Systems: Unable To Obtain Reason Not Obtained: Altered mental status ED EXAM, GENERAL - Physical Exam Exam: See Below Free Text/Narrative:: General Appearance: No acute distress, appears comfortable Skin: No rash HEENT: Normocephalic/atraumatic, sclera anicteric, mucous membranes moist Neck: Normal range of motion Chest and Lungs: Bilateral breath sounds, clear to auscultation Cardiovascular: Regular rate and rhythm, no murmur Abdomen: Soft, non-tender Back: Normal Musculoskeletal: No edema or tenderness Neurologic: Briefly arouses to sternal rub, protecting airway, localizes to painful stimuli, did speak to nursing, GCS 11 EKG INTERPRETATION EKG Date: 04/04/20 Time: 10:46 EKG Interpretation Comments: Okay go sinus rhythm with significant irregularity, QTC prolonged at 522 Course - Vital Signs Last Recorded V/S: Last Vital Signs Temp 97.0 F 04/04/20 10:54 Pulse 69 04/04/20 12:11 Resp 16 04/04/20 12:11 BP 89/60 L 04/04/20 12:11 Pulse Ox 100 04/04/20 12:11 - Orders/Labs/Meds Orders: Active Orders 24 hr Category Date Time Status Patient Status [ADT] Routine ADT 04/04/20 12:54 Ordered Accu Check [Blood Glucose Check, Bedside] [RC] ONETIME Care 04/04/20 10:50 Active EKG Documentation Completion [RC] AM Care 04/04/20 10:49 Active CORONAVIRUS COVID-19 PCR PHL Stat Lab 04/04/20 12:49 Ordered DRUG SCREEN, URINE [URCHEM] Stat Lab 04/04/20 10:49 Ordered Sodium Chloride 0.9% [Saline Flush] Med 04/04/20 10:49 Active 10 ml FLUSH ASDIRECTED PRN Sodium Chloride 0.9% [Saline Flush] Med 04/04/20 10:49 Active 2.5 ml FLUSH ASDIRECTED PRN Saline Lock Insert [OM.PC] Stat Oth 04/04/20 10:49 Ordered Medication Orders Sodium Chloride (Saline Flush) 10 ml FLUSH ASDIRECTED PRN PRN Reason: Keep Vein Open Last Admin: 04/04/20 11:17 Dose: 10 ml Documented by: ROSEANN Sodium Chloride (Saline Flush) 2.5 ml FLUSH ASDIRECTED PRN PRN Reason: Keep Vein Open Last Admin: 04/04/20 11:18 Dose: 2.5 ml Documented by: ROSEANN Labs: Laboratory Tests 04/04/20 04/04/20 04/04/20 Range/Units 10:46 10:46 10:46 WBC 5.87 (4.0-11.0) K/uL RBC 4.00 L (4.30-5.90) M/uL Hgb 13.4 (12.0-16.0) g/dL Hct 39.7 (36.0-46.0) % MCV 99.3 H (80.0-98.0) fL MCH 33.5 H (27.0-32.0) pg MCHC 33.8 (31.0-37.0) g/dL RDW Std Deviation 45.5 (28.0-62.0) fl RDW Coeff of Jarek 13 (11.0-15.0) % Plt Count 276 (150-400) K/uL MPV 9.90 (7.40-12.00) fL Neut % (Auto) 44.4 L (48.0-80.0) % Lymph % (Auto) 44.1 H (16.0-40.0) % [place] % (Auto) 10.4 (0.0-15.0) % Eos % (Auto) 0.9 (0.0-7.0) % Baso % (Auto) 0.2 (0.0-1.5) % Neut # (Auto) 2.6 (1.4-5.7) K/uL Lymph # (Auto) 2.6 H (0.6-2.4) K/uL [place] # (Auto) 0.6 (0.0-0.8) K/uL Eos # (Auto) 0.1 (0.0-0.7) K/uL Baso # (Auto) 0.0 (0.0-0.1) K/uL Nucleated RBC % 0.0 /100WBC Nucleated RBCs # 0 K/uL Sodium 147 H (136-145) mmol/L Potassium 3.6 (3.5-5.1) mmol/L Chloride 110 H (98-107) mmol/L Carbon Dioxide 27.0 (21.0-32.0) mmol/L BUN 15 (7.0-18.0) mg/dL Creatinine 0.7 (0.6-1.0) mg/dL Est Cr Clr Drug Dosing 95.94 mL/min Estimated GFR (MDRD) > 60.0 ml/min Glucose 89 (74-106) mg/dL POC Glucose (60-110) mg/dL Calcium 8.0 L (8.5-10.1) mg/dL Magnesium 2.1 (1.8-2.4) mg/dL Total Bilirubin 0.5 (0.2-1.0) mg/dL AST 22 (15-37) IU/L ALT 27 (14-63) IU/L Alkaline Phosphatase 48 (46-116) U/L Total Protein 6.7 (6.4-8.2) g/dL Albumin 3.6 (3.4-5.0) g/dL Globulin 3.1 (2.6-4.0) g/dL Albumin/Globulin Ratio 1.2 (0.9-1.6) HCG, Qual NEGATIVE (NEG) Ethyl Alcohol 159 mg/dL 04/04/20 Range/Units 11:10 WBC (4.0-11.0) K/uL RBC (4.30-5.90) M/uL Hgb (12.0-16.0) g/dL Hct (36.0-46.0) % MCV (80.0-98.0) fL MCH (27.0-32.0) pg MCHC (31.0-37.0) g/dL RDW Std Deviation (28.0-62.0) fl RDW Coeff of Jarek (11.0-15.0) % Plt Count (150-400) K/uL MPV (7.40-12.00) fL Neut % (Auto) (48.0-80.0) % Lymph % (Auto) (16.0-40.0) % [place] % (Auto) (0.0-15.0) % Eos % (Auto) (0.0-7.0) % Baso % (Auto) (0.0-1.5) % Neut # (Auto) (1.4-5.7) K/uL Lymph # (Auto) (0.6-2.4) K/uL [place] # (Auto) (0.0-0.8) K/uL Eos # (Auto) (0.0-0.7) K/uL Baso # (Auto) (0.0-0.1) K/uL Nucleated RBC % /100WBC Nucleated RBCs # K/uL Sodium (136-145) mmol/L Potassium (3.5-5.1) mmol/L Chloride (98-107) mmol/L Carbon Dioxide (21.0-32.0) mmol/L BUN (7.0-18.0) mg/dL Creatinine (0.6-1.0) mg/dL Est Cr Clr Drug Dosing mL/min Estimated GFR (MDRD) ml/min Glucose (74-106) mg/dL POC Glucose 79 (60-110) mg/dL Calcium (8.5-10.1) mg/dL Magnesium (1.8-2.4) mg/dL Total Bilirubin (0.2-1.0) mg/dL AST (15-37) IU/L ALT (14-63) IU/L Alkaline Phosphatase (46-116) U/L Total Protein (6.4-8.2) g/dL Albumin (3.4-5.0) g/dL Globulin (2.6-4.0) g/dL Albumin/Globulin Ratio (0.9-1.6) HCG, Qual (NEG) Ethyl Alcohol mg/dL Meds: Medications Generic Name Dose Route Start Last Admin Trade Name Freq PRN Reason Stop Dose Admin Sodium Chloride 10 ml 04/04/20 10:49 04/04/20 11:17 Saline Flush FLUSH 10 ml ASDIRECTED PRN Administration Keep Vein Open Sodium Chloride 2.5 ml 04/04/20 10:49 04/04/20 11:18 Saline Flush FLUSH 2.5 ml ASDIRECTED PRN Administration Keep Vein Open Discontinued Medications Generic Name Dose Route Start Last Admin Trade Name Freq PRN Reason Stop Dose Admin Lactated Ringer's 1,000 mls @ 999 mls/hr 04/04/20 11:43 04/04/20 11:53 Ringers, Lactated IV 04/04/20 12:43 999 mls/hr .BOLUS ONE Administration Departure - Departure Time of Disposition: 12:55 Disposition: Refer to Observation Condition: Good Clinical Impression: Intentional benzocaine overdose, Hypernatremia - Discharge Information *PRESCRIPTION DRUG MONITORING PROGRAM REVIEWED*: Not Applicable *COPY OF PRESCRIPTION DRUG MONITORING REPORT IN PATIENT TATY: Not Applicable Referrals: Yarely De Jesus MD [Primary Care Provider] - Forms: ED Department Discharge Sepsis Event Note (ED) - Focused Exam Vital Signs: Vital Signs Temp Pulse Pulse Resp BP BP Pulse Ox 04/04/20 12:11 69 16 89/60 L 100 04/04/20 11:50 173 H 32 H 90/55 L 99 04/04/20 11:29 58 L 21 H 83/47 L 100 04/04/20 11:06 129 H 18 95/62 99 04/04/20 10:54 97.0 F 12 L 12 101/58 L 100 - My Orders Last 24 Hours: My Active Orders 04/04/20 10:49 EKG Documentation Completion [RC] AM DRUG SCREEN, URINE [URCHEM] Stat Sodium Chloride 0.9% [Saline Flush] 10 ml FLUSH ASDIRECTED PRN Sodium Chloride 0.9% [Saline Flush] 2.5 ml FLUSH ASDIRECTED PRN Saline Lock Insert [OM.PC] Stat 04/04/20 10:50 Accu Check [Blood Glucose Check, Bedside] [RC] ONETIME 04/04/20 12:49 CORONAVIRUS COVID-19 PCR PHL Stat 04/04/20 12:54 Patient Status [ADT] Routine - Assessment/Plan Last 24 Hours: My Active Orders 04/04/20 10:49 EKG Documentation Completion [RC] AM DRUG SCREEN, URINE [URCHEM] Stat Sodium Chloride 0.9% [Saline Flush] 10 ml FLUSH ASDIRECTED PRN Sodium Chloride 0.9% [Saline Flush] 2.5 ml FLUSH ASDIRECTED PRN Saline Lock Insert [OM.PC] Stat 04/04/20 10:50 Accu Check [Blood Glucose Check, Bedside] [RC] ONETIME 04/04/20 12:49 CORONAVIRUS COVID-19 PCR PHL Stat 04/04/20 12:54 Patient Status [ADT] Routine Assessment:: 34-year-old female presents with intentional overdose patient is protecting her airway, would not give flumazenil given her known chronic use of benzodiazepines. EKG does demonstrate prolonged QTC. Magnesium CBC CMP CT brain ordered as well we will monitor the patient on telemetry if we cannot rapidly clear her or if the QTC prohibits rapid placement patient may need to be admitted pending medical clearance. There is concern for intentional self-harm and so patient will need formal psychiatric evaluation. Labs with minimal hyponatremia and mild alcohol intoxication. This is likely contributing to her altered mental status. Magnesium is normal. Patient has had brief self resolving episodes of SVT while on telemetry here. This is a common problem for the patient. She has not required any intervention for the SVT. Given these findings I do not believe the patient can be safely medically cleared for psychiatric evaluation from the ER and will discuss with hospitalist. 1255: Pt discussed with Dr. Dotson. Will refer to obs status in the ICU pending metabolization of drugs and etOH and reassessment.
[2020-04-04 11:27] LABS: BLOOD UREA NITROGEN,BUN 15 mg/dL (7.0-18.0); CHLORIDE,CL 110 mmol/L (98-107); GLUCOSE RANDOM 89 mg/dL (74-106); POTASSIUM,K 3.6 mmol/L (3.5-5.1); SODIUM,NA 147 mmol/L (136-145)
[2020-04-04] MEDS ORDERED: Lactated Ringers 1,000 ML IV ONE ×3 (11:43→20:00)
[2020-04-04 12:12] VITALS: PULSE 69
--- NOTE | 2020-04-04 12:31 | CT ---
Head CT Technique: Multiple axial sections through the brain were obtained. Intravenous contrast was not utilized. Comparison: Prior head CT study of 03/09/20. Findings: Ventricles along with basal cisterns and sulci over the convexities are within normal limits for the patient's age. No abnormal parenchymal densities are seen. No evidence of intracranial hemorrhage. No midline shift or mass effect is seen. Visualized mastoid sinuses and visualized paranasal sinuses show nothing acute. No acute calvarial finding is seen. Impression: 1. Nothing acute is identified on noncontrast head CT study. 2. No change from previous study is seen. Diagnostic code #1 This report was dictated in MDT
[2020-04-04] MEDS ORDERED: Albuterol/Ipratropium 3.0-0.5 MG/3 ML Neb Soln NEB PRN (14:12)
[2020-04-04] MEDS ORDERED: Enoxaparin 40 MG/0.4 ML Syringe SUBCUT SCH (14:15)
[2020-04-04] MEDS ORDERED: 25% Dextrose in Water 10 ML Syringe IVPUSH PRN (14:18)
--- NOTE | 2020-04-04 14:19 | PCM.HP.2 ---
H&P History of Present Illness - General Date of Service: 04/04/20 Admit Problem/Dx: Admission Diagnosis/Problem Admission Diagnosis/Problem Intentional benzodiazepine overdose - History of Present Illness Initial Comments - Free Text/Narative: 34-year-old female with a history of SVT , Afib, on verapamil as well as propafenone and lorazepam as well who presents with lorazepam overdose. Approximately 30 minutes prior to arrival the patient was witnessed by her friends to take 17.5 mg lorazepam tablets. She reportedly told her friends that "it is my only way out." There is no history of any other coingestions patient is quite somnolent and unable to provide additional history. EKG does demonstrated prolonged QTC. Magnesium CBC CMP CT brain ordered which were unremarkable, she was able to wake up sometime later and told ER physician that she is no longer suicidal. Patient has had brief self resolving episodes of SVT while on telemetry in ER and required any intervention for the SVT. Poison control recommended admitting patient for overnight to monitor her respiratory status and mental status. - Related Data Allergies/Adverse Reactions: Allergies Allergy/AdvReac Type Severity Reaction Status Date / Time Penicillins Allergy Intermediate yeast Verified 04/04/20 14:22 infection Home Medications: Home Meds Propafenone HCl [Rythmol Sr] 425 mg PO BID 03/30/19 [History] Verapamil HCl [Verapamil ER Pm] 100 mg PO BEDTIME 03/30/19 [History] LORazepam [Lorazepam] 0.5 mg PO Q6H 04/04/20 [History] Past Medical History HEENT History: Reports: Other (See Below) Other HEENT History: wears glasses Cardiovascular History: Reports: Arrhythmia, Syncope, Other (See Below) Other Cardiovascular History: hx SVT. 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 (See Below) Other OB/BYN History: x 2 Musculoskeletal History: Reports: None Neurological History: Reports: None Psychiatric History: Reports: Anxiety Endocrine/Metabolic History: Reports: Obesity/BMI 30+ Insulin Pump Model and Publications Sales Representative: None Hematologic History: Reports: None Immunologic History: Reports: None Oncologic (Cancer) History: Reports: None Dermatologic History: Reports: None - Infectious Disease History Infectious Disease History: Reports: Chicken Pox, Shingles - Past Surgical History Head Surgeries/Procedures: Reports: None HEENT Surgical History: Reports: None Cardiovascular Surgical History: Reports: None Respiratory Surgical History: Reports: None GI Surgical History: Reports: Cholecystectomy Female Surgical History: Reports: Section Endocrine Surgical History: Reports: None Neurological Surgical History: Reports: None Musculoskeletal Surgical History: Reports: None Oncologic Surgical History: Reports: None Dermatological Surgical History: Reports: None Social & Family History - Family History Family Medical History: Noncontributory - Tobacco Use Smoking Status *Q: Unknown Ever Smoked - Caffeine Use Caffeine Use: Reports: None H&P Review of Systems - Review of Systems: Review Of Systems: See Below (sedated due to drug overdose) Exam - Exam Exam: See Below - Vital Signs Vital Signs: Last Vital Signs Temp 36.1 C 04/04/20 14:18 Pulse 69 04/04/20 12:11 Resp 16 04/04/20 14:18 BP 110/71 04/04/20 14:18 Pulse Ox 98 04/04/20 14:18 Weight: 56.699 kg - Exam General: Sedated, Other (wakes up upon touch but immediately goes back to sleep). No: Alert, Oriented Neck: Supple Lungs: Clear to Auscultation, Normal Respiratory Effort Cardiovascular: Regular Rate, Normal S1, Normal S2, Irregular Rhythm GI/Abdominal Exam: Normal Bowel Sounds, Soft, Non-Tender Back Exam: Normal Inspection Extremities: Normal Inspection - Patient Data Lab Results Last 24 hrs: Laboratory Results - last 24 hr 04/04/20 04/04/20 04/04/20 Range/Units 10:46 10:46 10:46 WBC 5.87 (4.0-11.0) K/uL RBC 4.00 L (4.30-5.90) M/uL Hgb 13.4 (12.0-16.0) g/dL Hct 39.7 (36.0-46.0) % MCV 99.3 H (80.0-98.0) fL MCH 33.5 H (27.0-32.0) pg MCHC 33.8 (31.0-37.0) g/dL RDW Std Deviation 45.5 (28.0-62.0) fl RDW Coeff of Jarek 13 (11.0-15.0) % Plt Count 276 (150-400) K/uL MPV 9.90 (7.40-12.00) fL Neut % (Auto) 44.4 L (48.0-80.0) % Lymph % (Auto) 44.1 H (16.0-40.0) % [place] % (Auto) 10.4 (0.0-15.0) % Eos % (Auto) 0.9 (0.0-7.0) % Baso % (Auto) 0.2 (0.0-1.5) % Neut # (Auto) 2.6 (1.4-5.7) K/uL Lymph # (Auto) 2.6 H (0.6-2.4) K/uL [place] # (Auto) 0.6 (0.0-0.8) K/uL Eos # (Auto) 0.1 (0.0-0.7) K/uL Baso # (Auto) 0.0 (0.0-0.1) K/uL Nucleated RBC % 0.0 /100WBC Nucleated RBCs # 0 K/uL Sodium 147 H (136-145) mmol/L Potassium 3.6 (3.5-5.1) mmol/L Chloride 110 H (98-107) mmol/L Carbon Dioxide 27.0 (21.0-32.0) mmol/L BUN 15 (7.0-18.0) mg/dL Creatinine 0.7 (0.6-1.0) mg/dL Est Cr Clr Drug Dosing 95.94 mL/min Estimated GFR (MDRD) > 60.0 ml/min Glucose 89 (74-106) mg/dL POC Glucose (60-110) mg/dL Calcium 8.0 L (8.5-10.1) mg/dL Magnesium 2.1 (1.8-2.4) mg/dL Total Bilirubin 0.5 (0.2-1.0) mg/dL AST 22 (15-37) IU/L ALT 27 (14-63) IU/L Alkaline Phosphatase 48 (46-116) U/L Total Protein 6.7 (6.4-8.2) g/dL Albumin 3.6 (3.4-5.0) g/dL Globulin 3.1 (2.6-4.0) g/dL Albumin/Globulin Ratio 1.2 (0.9-1.6) HCG, Qual NEGATIVE (NEG) Ethyl Alcohol 159 mg/dL SARS-CoV-2 RNA (VIVIANA) (NEGATIVE) 04/04/20 04/04/20 Range/Units 11:10 12:42 WBC (4.0-11.0) K/uL RBC (4.30-5.90) M/uL Hgb (12.0-16.0) g/dL Hct (36.0-46.0) % MCV (80.0-98.0) fL MCH (27.0-32.0) pg MCHC (31.0-37.0) g/dL RDW Std Deviation (28.0-62.0) fl RDW Coeff of Jarek (11.0-15.0) % Plt Count (150-400) K/uL MPV (7.40-12.00) fL Neut % (Auto) (48.0-80.0) % Lymph % (Auto) (16.0-40.0) % [place] % (Auto) (0.0-15.0) % Eos % (Auto) (0.0-7.0) % Baso % (Auto) (0.0-1.5) % Neut # (Auto) (1.4-5.7) K/uL Lymph # (Auto) (0.6-2.4) K/uL [place] # (Auto) (0.0-0.8) K/uL Eos # (Auto) (0.0-0.7) K/uL Baso # (Auto) (0.0-0.1) K/uL Nucleated RBC % /100WBC Nucleated RBCs # K/uL Sodium (136-145) mmol/L Potassium (3.5-5.1) mmol/L Chloride (98-107) mmol/L Carbon Dioxide (21.0-32.0) mmol/L BUN (7.0-18.0) mg/dL Creatinine (0.6-1.0) mg/dL Est Cr Clr Drug Dosing mL/min Estimated GFR (MDRD) ml/min Glucose (74-106) mg/dL POC Glucose 79 (60-110) mg/dL Calcium (8.5-10.1) mg/dL Magnesium (1.8-2.4) mg/dL Total Bilirubin (0.2-1.0) mg/dL AST (15-37) IU/L ALT (14-63) IU/L Alkaline Phosphatase (46-116) U/L Total Protein (6.4-8.2) g/dL Albumin (3.4-5.0) g/dL Globulin (2.6-4.0) g/dL Albumin/Globulin Ratio (0.9-1.6) HCG, Qual (NEG) Ethyl Alcohol mg/dL SARS-CoV-2 RNA (VIVIANA) NEGATIVE (NEGATIVE) Result Diagrams: 04/04/20 10:46 04/04/20 10:46 Sepsis Event Note - Evaluation Sepsis Screening Result: No Definite Risk - Focused Exam Vital Signs: Vital Signs Temp Pulse Pulse Resp BP BP Pulse Ox 04/04/20 14:18 36.1 C 16 110/71 98 04/04/20 12:11 69 16 89/60 L 100 04/04/20 11:50 173 H 32 H 90/55 L 99 04/04/20 11:29 58 L 21 H 83/47 L 100 04/04/20 11:06 129 H 18 95/62 99 04/04/20 10:54 36.1 C 12 L 12 101/58 L 100 - Problem List (1) Benzocaine overdose of undetermined intent SNOMED Code(s): 884609139 ICD Code: T41.3X4A - POISONING BY LOCAL ANESTHETICS, UNDETERMINED, INIT ENCNTR Status: Acute Current Visit: Yes Problem List Initiated/Reviewed/Updated: Yes Orders Last 24hrs: Active Orders 24 hr Category Date Time Status Patient Status [ADT] Routine ADT 04/04/20 12:54 Active Antiembolic Devices [RC] PER UNIT ROUTINE Care 04/04/20 14:14 Ordered Oxygen Therapy [RC] PRN Care 04/04/20 14:00 Ordered RT Aerosol Therapy [RC] ASDIRECTED Care 04/04/20 14:14 Ordered VTE/DVT Education [RC] PER UNIT ROUTINE Care 04/04/20 14:00 Ordered Vital Signs [RC] Q1H Care 04/04/20 14:00 Ordered Nothing per Oral Now Diet [DIET] Diet 04/04/20 Dinner Ordered DRUG SCREEN, URINE [URCHEM] Stat Lab 04/04/20 10:49 Ordered Albuterol/Ipratropium [DuoNeb 3.0-0.5 MG/3 ML] Med 04/04/20 14:12 Ordered 3 ml NEB Q4HRRT PRN Dextrose 25% in Water Med 04/04/20 14:18 Ordered 10 ml IVPUSH Q6H PRN Enoxaparin [Lovenox] Med 04/04/20 14:15 Ordered 40 mg SUBCUT Q24H Lactated Ringers @ 125 MLS/HR(1,000ml) Med 04/04/20 14:15 Ordered Lactated Ringers [Ringers, Lactated] 1,000 ml IV ASDIRECTED Lactated Ringers [Ringers, Lactated] 1,000 ml Med 04/04/20 14:05 Ordered IV BOLUS Sodium Chloride 0.9% [Saline Flush] Med 04/04/20 10:49 Active 10 ml FLUSH ASDIRECTED PRN Sodium Chloride 0.9% [Saline Flush] Med 04/04/20 10:49 Active 2.5 ml FLUSH ASDIRECTED PRN Saline Lock Insert [OM.PC] Stat Oth 04/04/20 10:49 Ordered Sequential Compression Device [OM.PC] Per Unit Routine Oth 04/04/20 14:07 Ordered Resuscitation Status Routine Resus Stat 04/04/20 13:59 Ordered Medication Orders Albuterol/Ipratropium (Duoneb 3.0-0.5 Mg/3 Ml) 3 ml NEB Q4HRRT PRN PRN Reason: Shortness Of Breath/wheezing Enoxaparin Sodium (Lovenox) 40 mg SUBCUT Q24H SOLIS Lactated Ringer's (Ringers, Lactated) 1,000 mls @ 999 mls/hr IV BOLUS ONE Stop: 04/04/20 15:05 Lactated Ringer's (Ringers, Lactated) 1,000 mls @ 125 mls/hr IV ASDIRECTED SOLIS Sodium Chloride (Saline Flush) 10 ml FLUSH ASDIRECTED PRN PRN Reason: Keep Vein Open Last Admin: 04/04/20 11:17 Dose: 10 ml Documented by: ROSEANN Sodium Chloride (Saline Flush) 2.5 ml FLUSH ASDIRECTED PRN PRN Reason: Keep Vein Open Last Admin: 04/04/20 11:18 Dose: 2.5 ml Documented by: ROSEANN Assessment/Plan Comment:: 34-year-old female admitted for possible suicidal overdose of Ativan pills Admit to ICU for close monitoring of her vital signs and respiratory status continue telemetry monitoring Will obtain Tylenol level as wel Continue gentle hydration with IV fluids Nothing by mouth for now to the patient is more awake and able to swallow without risk of aspiration Patient is in A. fib but is rate controlled Will resume home meds when patient is able to tolerate oral meds E ICU is on board
--- NOTE | 2020-04-04 14:56 | PN ---
THC Physician - Brief Progress [id number]/22/2020 14:55[facility] [place], [place] - [facility] ([facility]) - [facility] KOSTA GARCIA.Date of Service 04/04/2020 14:55HPI/Even ts of Note eICU Admission [id number] admitted for suspected drug overdose. History obtained from review of EMR.PMH: SVT on verapamil, propafenone, and lorazepamHPI: Patient presented to emergency departmen t after being witnessed to take 17.5 mg of lorazepam as part of a suicide attempt.On arrival patient was notably somnolent, but per bedside assessment protecting airway.Work up had revealed elevated EtO H level as well.Patient was admitted to the ICU for further management.Camera exam: Laying in bed. Vi tals monitor reviewed. eICU Impression and Recommendations:Suggest continuous ETCO2 monitoring as a s urrogate of ventilatory status. Low threshold to intubate if unable to protect airway or GCS <8Once a cute phase over, will need to monitor patient for signs of withdrawal. At that time suggest initiatio n of alcohol withdrawal protocol per institutional policySuicide precautions (including sitter) per l ocal institutional policyOnce medically stabilized recommend psychiatry evaluation for inpatient admi ssionDVT and GI prophylaxis as appropriate.Thank you for allowing us to participate in the care of th is patient.The above note transcribed with the assistance of dictation software. Please excuse any er rors.Interventions Major-Change in mental status - evaluation and management
[2020-04-04] MEDS: Lactated Ringers 1,000 ML IV SCH (16:02)
[2020-04-04] MEDS ORDERED: Metoprolol Tartrate 5 MG/5 ML SDV IVPUSH ONE (19:54)
[2020-04-04] MEDS ORDERED: Adenosine 6 MG/2 ML SDV IVPUSH ONE ×3 (19:56→20:05)
[2020-04-04] MEDS ORDERED: Diltiazem 25 MG/5 ML SDV IVPUSH ONE (20:07)
[2020-04-04] MEDS ORDERED: Diltiazem 25 MG/5 ML SDV ONE (20:09)
[2020-04-04] MEDS ORDERED: Etomidate 2 MG/ML 20 ML SDV IVPUSH ONE (20:20)
[2020-04-04] MEDS ORDERED: Diltiazem 100 MG in Sodium Chloride 0.9% 100 ML IV SCH (20:30)
[2020-04-05] MEDS: Lactated Ringers 1,000 ML IV SCH (00:40)
[2020-04-05] MEDS ORDERED: Diltiazem IR 60 MG Tab PO SCH (06:45)
[2020-04-05 06:51] LABS: BLOOD UREA NITROGEN,BUN 16 mg/dL (7.0-18.0); CARBON DIOXIDE,CO2 25.8 mmol/L (21.0-32.0); CHLORIDE,CL 109 mmol/L (98-107); GLUCOSE RANDOM 80 mg/dL (74-106); POTASSIUM,K 3.4 mmol/L (3.5-5.1); SODIUM,NA 141 mmol/L (136-145)
[2020-04-05 09:40] VITALS: BP 121/79
[2020-04-05] MEDS ORDERED: Potassium Chloride 20 MEQ Tab.ER PO ONE (10:21)
--- NOTE | 2020-04-05 12:28 | PN ---
THC Physician - Brief Progress [id number]/23/2020 12:27[facility] [place] Ap[place], [place] - MWN ([place]) - MWN KOSTA GARCIADate of Service 04/05/2020 12:27HPI/Even ts of Note eICU Progress [id number] admitted for suspected drug overdose. History obtained from review o f EMR.Camera exam: Sitting up in bed, talking to bedside clinician. Vitals monitor reviewed.eICU Impr ession and Recommendations:No new recommendations at this timePlease do not hesitate to contact eICU for any further questionsDVT and GI prophylaxis as appropriate.Thank you for allowing us to participa te in the care of this patient.The above note transcribed with the assistance of dictation software. Please excuse any errors.Interventions Major-Change in mental status - evaluation and managementElect ronically Signed by: MARYBETH KENNEDY) on 04/05/2020 12:28
--- NOTE | 2020-04-05 13:27 | PCM.PN ---
- General Info Date of Service: 04/05/20 Admission Dx/Problem (Free Text): Admission Diagnosis/Problem Admission Diagnosis/Problem Intentional benzodiazepine overdose Subjective Update: seen at bedside, comfortable, wants to leave jenni - Review of Systems General: Denies: Fever, Weakness HEENT: Denies: Contact Lenses Pulmonary: Denies: Shortness of Breath, Pleuritic Chest Pain Cardiovascular: Denies: Chest Pain, Palpitations, Dyspnea on Exertion Gastrointestinal: Denies: Abdominal Pain, Constipation, Decreased Appetite Genitourinary: Denies: Dysuria, Frequency, Burning - Patient Data Vitals - Most Recent: Last Vital Signs Temp 36.9 C 04/05/20 08:00 Pulse 69 04/04/20 12:11 Resp 18 04/05/20 09:00 BP 121/79 04/05/20 09:00 Pulse Ox 100 04/05/20 09:00 Weight - Most Recent: 69.037 kg I&O - Last 24 Hours: Intake & Output 04/04/20 04/05/20 04/05/20 22:59 06:59 14:59 Intake Total 1000 2539 Balance 1000 2539 Lab Results Last 24 Hours: Laboratory Results - last 24 hr 04/04/20 04/04/20 04/04/20 Range/Units 10:46 12:42 19:45 WBC (4.0-11.0) K/uL RBC (4.30-5.90) M/uL Hgb (12.0-16.0) g/dL Hct (36.0-46.0) % MCV (80.0-98.0) fL MCH (27.0-32.0) pg MCHC (31.0-37.0) g/dL RDW Std Deviation (28.0-62.0) fl RDW Coeff of Jarek (11.0-15.0) % Plt Count (150-400) K/uL MPV (7.40-12.00) fL Neut % (Auto) (48.0-80.0) % Lymph % (Auto) (16.0-40.0) % [place] % (Auto) (0.0-15.0) % Eos % (Auto) (0.0-7.0) % Baso % (Auto) (0.0-1.5) % Neut # (Auto) (1.4-5.7) K/uL Lymph # (Auto) (0.6-2.4) K/uL [place] # (Auto) (0.0-0.8) K/uL Eos # (Auto) (0.0-0.7) K/uL Baso # (Auto) (0.0-0.1) K/uL Nucleated RBC % /100WBC Nucleated RBCs # K/uL Sodium (136-145) mmol/L Potassium (3.5-5.1) mmol/L Chloride (98-107) mmol/L Carbon Dioxide (21.0-32.0) mmol/L BUN (7.0-18.0) mg/dL Creatinine (0.6-1.0) mg/dL Est Cr Clr Drug Dosing mL/min Estimated GFR (MDRD) ml/min Glucose (74-106) mg/dL Calcium (8.5-10.1) mg/dL Urine Opiates Screen NEGATIVE (NEGATIVE) Ur Oxycodone Screen NEGATIVE (NEGATIVE) Urine Methadone Screen NEGATIVE (NEGATIVE) Acetaminophen <2.0 ug/mL Ur Barbiturates Screen NEGATIVE (NEGATIVE) Ur Phencyclidine Scrn NEGATIVE (NEGATIVE) Ur Amphetamine Screen NEGATIVE (NEGATIVE) U Methamphetamines Scrn NEGATIVE (NEGATIVE) U Benzodiazepines Scrn POSITIVE (NEGATIVE) U Cocaine Metab Screen NEGATIVE (NEGATIVE) U Marijuana (THC) Screen NEGATIVE (NEGATIVE) SARS-CoV-2 RNA (VIVIANA) NEGATIVE (NEGATIVE) 04/05/20 04/05/20 Range/Units 06:02 06:02 WBC 4.77 (4.0-11.0) K/uL RBC 3.22 L (4.30-5.90) M/uL Hgb 10.9 L (12.0-16.0) g/dL Hct 32.0 L (36.0-46.0) % MCV 99.4 H (80.0-98.0) fL MCH 33.9 H (27.0-32.0) pg MCHC 34.1 (31.0-37.0) g/dL RDW Std Deviation 45.2 (28.0-62.0) fl RDW Coeff of Jarek 12 (11.0-15.0) % Plt Count 209 (150-400) K/uL MPV 10.10 (7.40-12.00) fL Neut % (Auto) 44.9 L (48.0-80.0) % Lymph % (Auto) 45.9 H (16.0-40.0) % [place] % (Auto) 6.5 (0.0-15.0) % Eos % (Auto) 2.3 (0.0-7.0) % Baso % (Auto) 0.4 (0.0-1.5) % Neut # (Auto) 2.1 (1.4-5.7) K/uL Lymph # (Auto) 2.2 (0.6-2.4) K/uL [place] # (Auto) 0.3 (0.0-0.8) K/uL Eos # (Auto) 0.1 (0.0-0.7) K/uL Baso # (Auto) 0.0 (0.0-0.1) K/uL Nucleated RBC % 0.0 /100WBC Nucleated RBCs # 0 K/uL Sodium 141 (136-145) mmol/L Potassium 3.4 L (3.5-5.1) mmol/L Chloride 109 H (98-107) mmol/L Carbon Dioxide 25.8 (21.0-32.0) mmol/L BUN 16 (7.0-18.0) mg/dL Creatinine 0.7 (0.6-1.0) mg/dL Est Cr Clr Drug Dosing 95.94 mL/min Estimated GFR (MDRD) > 60.0 ml/min Glucose 80 (74-106) mg/dL Calcium 7.4 L (8.5-10.1) mg/dL Urine Opiates Screen (NEGATIVE) Ur Oxycodone Screen (NEGATIVE) Urine Methadone Screen (NEGATIVE) Acetaminophen ug/mL Ur Barbiturates Screen (NEGATIVE) Ur Phencyclidine Scrn (NEGATIVE) Ur Amphetamine Screen (NEGATIVE) U Methamphetamines Scrn (NEGATIVE) U Benzodiazepines Scrn (NEGATIVE) U Cocaine Metab Screen (NEGATIVE) U Marijuana (THC) Screen (NEGATIVE) SARS-CoV-2 RNA (VIVIANA) (NEGATIVE) Med Orders - Current: Current Medications Albuterol/Ipratropium (Duoneb 3.0-0.5 Mg/3 Ml) 3 ml NEB Q4HRRT PRN PRN Reason: Shortness Of Breath/wheezing Dextrose/Water (Dextrose 25% In Water) 10 ml IVPUSH Q6H PRN PRN Reason: Hypoglycemia Diltiazem HCl (Cardizem) 60 mg PO Q6HR [facility] Last Admin: 04/05/20 07:09 Dose: 60 mg Documented by: Diltiazem HCl (Cardizem Cd) 180 mg PO DAILY [facility] Enoxaparin Sodium (Lovenox) 40 mg SUBCUT Q24H [facility] Last Admin: 04/04/20 15:00 Dose: 40 mg Documented by: Sodium Chloride (Saline Flush) 10 ml FLUSH ASDIRECTED PRN PRN Reason: Keep Vein Open Last Admin: 04/04/20 11:17 Dose: 10 ml Documented by: Sodium Chloride (Saline Flush) 2.5 ml FLUSH ASDIRECTED PRN PRN Reason: Keep Vein Open Last Admin: 04/04/20 11:18 Dose: 2.5 ml Documented by: Sotalol HCl (Betapace) 80 mg PO BID [facility] Discontinued Medications Adenosine (Adenocard) 6 mg IVPUSH NOW ONE Stop: 04/04/20 19:57 Last Admin: 04/04/20 19:57 Dose: 6 mg Documented by: Adenosine (Adenocard) 12 mg IVPUSH NOW ONE Stop: 04/04/20 20:00 Last Admin: 04/04/20 19:59 Dose: 12 mg Documented by: Adenosine (Adenocard) 12 mg IVPUSH NOW ONE Stop: 04/04/20 20:06 Last Admin: 04/04/20 20:05 Dose: 12 mg Documented by: Diltiazem HCl (Diltiazem) 20 mg IVPUSH ONETIME ONE Stop: 04/04/20 20:08 Last Admin: 04/04/20 21:35 Dose: Not Given Documented by: Diltiazem HCl (Diltiazem) Confirm Administered Dose 50 mg .ROUTE .STK-MED ONE Stop: 04/04/20 20:10 Last Admin: 04/04/20 21:36 Dose: Not Given Documented by: Etomidate (Amidate) 5 mg IVPUSH ONETIME ONE Stop: 04/04/20 20:21 Last Admin: 04/04/20 20:20 Dose: 5 mg Documented by: Lactated Ringer's (Ringers, Lactated) 1,000 mls @ 999 mls/hr IV .BOLUS ONE Stop: 04/04/20 12:43 Last Admin: 04/04/20 11:53 Dose: 999 mls/hr Documented by: Lactated Ringer's (Ringers, Lactated) 1,000 mls @ 999 mls/hr IV BOLUS ONE Stop: 04/04/20 15:05 Last Admin: 04/04/20 14:53 Dose: 999 mls/hr Documented by: Lactated Ringer's (Ringers, Lactated) 1,000 mls @ 125 mls/hr IV ASDIRECTED [facility] Last Admin: 04/05/20 00:40 Dose: 125 mls/hr Documented by: Lactated Ringer's (Ringers, Lactated) 1,000 mls @ 999 mls/hr IV BOLUS ONE Stop: 04/04/20 21:00 Last Admin: 04/04/20 20:53 Dose: 999 mls/hr Documented by: Diltiazem HCl 100 mg/ Sodium (Chloride) 100 mls @ 5 mls/hr IV ASDIRECTED [facility]; Protocol Last Titration: 04/04/20 22:42 Dose: 5 mg/hr, 5 mls/hr Documented by: Metoprolol Tartrate (Lopressor) 5 mg IVPUSH ONETIME ONE Stop: 04/04/20 19:55 Last Admin: 04/04/20 21:35 Dose: Not Given Documented by: Potassium Chloride (Klor-Con M20) 40 meq PO ONETIME ONE Stop: 04/05/20 10:22 - Exam General: Alert, Oriented, No Acute Distress Neck: Supple, Trachea Midline Lungs: Clear to Auscultation, Normal Respiratory Effort Cardiovascular: Regular Rate, Regular Rhythm Sepsis Event Note - Evaluation Sepsis Screening Result: No Definite Risk - Focused Exam Vital Signs: Vital Signs Temp Resp BP Pulse Ox 04/05/20 09:00 18 121/79 100 04/05/20 08:00 36.9 C 12 116/79 98 04/05/20 07:00 18 109/64 98 04/05/20 06:00 16 105/63 97 04/05/20 05:00 16 103/67 97 04/05/20 04:00 37.1 C 16 112/63 97 04/05/20 03:00 16 101/58 L 96 04/05/20 02:00 13 100/50 L 97 - Problem List & Annotations (1) Benzocaine overdose of undetermined intent SNOMED Code(s): 164269801 Code(s): T41.3X4A - POISONING BY LOCAL ANESTHETICS, UNDETERMINED, INIT ENCNTR Status: Acute (2) Sustained SVT SNOMED Code(s): 6408260 Code(s): I47.1 - SUPRAVENTRICULAR TACHYCARDIA Status: Acute - Problem List Review Problem List Initiated/Reviewed/Updated: Yes - My Orders Last 24 Hours: My Active Orders 04/04/20 13:59 Resuscitation Status Routine 04/04/20 14:00 Oxygen Therapy [RC] PRN VTE/DVT Education [RC] PER UNIT ROUTINE Vital Signs [RC] Q1H 04/04/20 14:07 Sequential Compression Device [OM.PC] Per Unit Routine 04/04/20 14:12 Albuterol/Ipratropium [DuoNeb 3.0-0.5 MG/3 ML] 3 ml NEB Q4HRRT PRN 04/04/20 14:14 Antiembolic Devices [RC] Q12H RT Aerosol Therapy [RC] ASDIRECTED 04/04/20 14:15 Enoxaparin [Lovenox] 40 mg SUBCUT Q24H 04/04/20 14:18 Dextrose 25% in Water 10 ml IVPUSH Q6H PRN 04/05/20 Breakfast Regular Diet [DIET] 04/05/20 06:45 Diltiazem IR [Cardizem] 60 mg PO Q6HR 04/05/20 11:38 Echo Comp wo Cont [US] Routine 04/05/20 12:58 EKG 12 Lead [EKG Documentation Completion] [RC] STAT 04/05/20 21:00 Sotalol [Betapace] 80 mg PO BID 04/06/20 09:00 Diltiazem [Cardizem CD] 180 mg PO DAILY - Plan Plan:: 34-year-old female admitted for possible suicidal overdose of Ativan pills continue telemetry monitoring yesterday had sustained SVT, had to be cardioverted, was on Cardizem gtt, now on oral Cardizem Will consult psych and cardiology for further recommendations
--- NOTE | 2020-04-05 14:31 | PCM.DCSUM1 ---
Discharge Summary - Hospital Course Free Text/Narrative:: 34-year-old female with a history of SVT , Afib, on verapamil as well as propafenone and lorazepam as well who presents with lorazepam overdose. Approximately 30 minutes prior to arrival the patient was witnessed by her friends to take 17.5 mg lorazepam tablets. She reportedly told her friends that "it is my only way out." There is no history of any other coingestions patient is quite somnolent and unable to provide additional history. EKG does demonstrated prolonged QTC. Magnesium CBC CMP CT brain ordered which were unremarkable, she was able to wake up sometime later and told ER physician that she is no longer suicidal. Patient has had brief self resolving episodes of SVT while on telemetry in ER and required any intervention for the SVT. Poison control recommended admitting patient for overnight to monitor her respiratory status and mental status. Patient developed SVTs during her stay, vagal manures were not successful, received adenosine with no results,, patient had to be cardioverted back to sinus rhythm due to hemodynamic instability. patientg was started on Cardizem gtt overnight. Cardiology recommended sotalol and monitoring for another 24 hours, psych was consulted deemed patient to be competent to maker her decisions, and recommend some changes in her meds., no inpatient psych admission and outpatient follow up was recommended, her ex was updated as well with patients permission,, Patient was advised to stay overnight but she decided to leave AMA, patient was made aware of the risks but she wanted to leave and signed AMA papers, was told to come back if she developed chest pain, sob, syncope etc.. Patient was discharged on cardizem, verapamil was discontinued, rest of the cardiac meds were not changed. - Discharge Data Discharge Date: 04/05/20 Discharge Disposition: Home, Self-Care 01 Condition: Fair - Referral to Home Health Primary Care Physician: Yarely De Jesus MD - Discharge Diagnosis/Problem(s) (1) Benzocaine overdose of undetermined intent SNOMED Code(s): 153353732 ICD Code: T41.3X4A - POISONING BY LOCAL ANESTHETICS, UNDETERMINED, INIT ENCNTR Status: Acute - Discharge Plan *PRESCRIPTION DRUG MONITORING PROGRAM REVIEWED*: Not Applicable *COPY OF PRESCRIPTION DRUG MONITORING REPORT IN PATIENT TATY: Not Applicable Prescriptions/Med Rec: busPIRone HCl [Buspirone HCl] 15 mg PO Q12HR #60 Diltiazem HCl [Cardizem LA] 180 mg PO DAILY #30 tab.sr.24h FLUoxetine HCl [Prozac] 40 mg PO BEDTIME #30 QUEtiapine Fumarate [Seroquel] 25 mg PO BEDTIME 30 Days tablet Home Medications: Home Meds Propafenone HCl [Rythmol Sr] 425 mg PO BID 03/30/19 [History] LORazepam [Lorazepam] 0.5 mg PO Q6H PRN 04/04/20 [History] Diltiazem HCl [Cardizem LA] 180 mg PO DAILY #30 tab.sr.24h 04/05/20 [Rx] FLUoxetine HCl [Prozac] 40 mg PO BEDTIME #30 04/05/20 [Rx] Prazosin HCl [Prazosin] 1 mg PO BEDTIME 04/05/20 [History] QUEtiapine Fumarate [Seroquel] 25 mg PO BEDTIME 30 Days tablet 04/05/20 [Rx] busPIRone HCl [Buspirone HCl] 15 mg PO Q12HR #60 04/05/20 [Rx] Forms: ED Department Discharge Referrals: Yarely De Jesus MD [Primary Care Provider] - - Discharge Summary/Plan Comment DC Time >30 min.: No - Patient Data Vitals - Most Recent: Last Vital Signs Temp 36.9 C 04/05/20 08:00 Pulse 69 04/04/20 12:11 Resp 18 04/05/20 09:00 BP 121/79 04/05/20 09:00 Pulse Ox 100 04/05/20 09:00 Weight - Most Recent: 69.037 kg I&O - Last 24 hours: Intake & Output 04/04/20 04/05/20 04/05/20 22:59 06:59 14:59 Intake Total 1000 2539 Balance 1000 2539 Lab Results - Last 24 hrs: Laboratory Results - last 24 hr 04/04/20 04/04/20 04/05/20 Range/Units 10:46 19:45 06:02 WBC 4.77 (4.0-11.0) K/uL RBC 3.22 L (4.30-5.90) M/uL Hgb 10.9 L (12.0-16.0) g/dL Hct 32.0 L (36.0-46.0) % MCV 99.4 H (80.0-98.0) fL MCH 33.9 H (27.0-32.0) pg MCHC 34.1 (31.0-37.0) g/dL RDW Std Deviation 45.2 (28.0-62.0) fl RDW Coeff of Jarek 12 (11.0-15.0) % Plt Count 209 (150-400) K/uL MPV 10.10 (7.40-12.00) fL Neut % (Auto) 44.9 L (48.0-80.0) % Lymph % (Auto) 45.9 H (16.0-40.0) % [place] % (Auto) 6.5 (0.0-15.0) % Eos % (Auto) 2.3 (0.0-7.0) % Baso % (Auto) 0.4 (0.0-1.5) % Neut # (Auto) 2.1 (1.4-5.7) K/uL Lymph # (Auto) 2.2 (0.6-2.4) K/uL [place] # (Auto) 0.3 (0.0-0.8) K/uL Eos # (Auto) 0.1 (0.0-0.7) K/uL Baso # (Auto) 0.0 (0.0-0.1) K/uL Nucleated RBC % 0.0 /100WBC Nucleated RBCs # 0 K/uL Sodium (136-145) mmol/L Potassium (3.5-5.1) mmol/L Chloride (98-107) mmol/L Carbon Dioxide (21.0-32.0) mmol/L BUN (7.0-18.0) mg/dL Creatinine (0.6-1.0) mg/dL Est Cr Clr Drug Dosing mL/min Estimated GFR (MDRD) ml/min Glucose (74-106) mg/dL Calcium (8.5-10.1) mg/dL Urine Opiates Screen NEGATIVE (NEGATIVE) Ur Oxycodone Screen NEGATIVE (NEGATIVE) Urine Methadone Screen NEGATIVE (NEGATIVE) Acetaminophen <2.0 ug/mL Ur Barbiturates Screen NEGATIVE (NEGATIVE) Ur Phencyclidine Scrn NEGATIVE (NEGATIVE) Ur Amphetamine Screen NEGATIVE (NEGATIVE) U Methamphetamines Scrn NEGATIVE (NEGATIVE) U Benzodiazepines Scrn POSITIVE (NEGATIVE) U Cocaine Metab Screen NEGATIVE (NEGATIVE) U Marijuana (THC) Screen NEGATIVE (NEGATIVE) 04/05/20 Range/Units 06:02 WBC (4.0-11.0) K/uL RBC (4.30-5.90) M/uL Hgb (12.0-16.0) g/dL Hct (36.0-46.0) % MCV (80.0-98.0) fL MCH (27.0-32.0) pg MCHC (31.0-37.0) g/dL RDW Std Deviation (28.0-62.0) fl RDW Coeff of Jarek (11.0-15.0) % Plt Count (150-400) K/uL MPV (7.40-12.00) fL Neut % (Auto) (48.0-80.0) % Lymph % (Auto) (16.0-40.0) % [place] % (Auto) (0.0-15.0) % Eos % (Auto) (0.0-7.0) % Baso % (Auto) (0.0-1.5) % Neut # (Auto) (1.4-5.7) K/uL Lymph # (Auto) (0.6-2.4) K/uL [place] # (Auto) (0.0-0.8) K/uL Eos # (Auto) (0.0-0.7) K/uL Baso # (Auto) (0.0-0.1) K/uL Nucleated RBC % /100WBC Nucleated RBCs # K/uL Sodium 141 (136-145) mmol/L Potassium 3.4 L (3.5-5.1) mmol/L Chloride 109 H (98-107) mmol/L Carbon Dioxide 25.8 (21.0-32.0) mmol/L BUN 16 (7.0-18.0) mg/dL Creatinine 0.7 (0.6-1.0) mg/dL Est Cr Clr Drug Dosing 95.94 mL/min Estimated GFR (MDRD) > 60.0 ml/min Glucose 80 (74-106) mg/dL Calcium 7.4 L (8.5-10.1) mg/dL Urine Opiates Screen (NEGATIVE) Ur Oxycodone Screen (NEGATIVE) Urine Methadone Screen (NEGATIVE) Acetaminophen ug/mL Ur Barbiturates Screen (NEGATIVE) Ur Phencyclidine Scrn (NEGATIVE) Ur Amphetamine Screen (NEGATIVE) U Methamphetamines Scrn (NEGATIVE) U Benzodiazepines Scrn (NEGATIVE) U Cocaine Metab Screen (NEGATIVE) U Marijuana (THC) Screen (NEGATIVE) Med Orders - Current: Current Medications Albuterol/Ipratropium (Duoneb 3.0-0.5 Mg/3 Ml) 3 ml NEB Q4HRRT PRN PRN Reason: Shortness Of Breath/wheezing Dextrose/Water (Dextrose 25% In Water) 10 ml IVPUSH Q6H PRN PRN Reason: Hypoglycemia Diltiazem HCl (Cardizem) 60 mg PO Q6HR [facility] Last Admin: 04/05/20 07:09 Dose: 60 mg Documented by: Diltiazem HCl (Cardizem Cd) 180 mg PO DAILY [facility] Enoxaparin Sodium (Lovenox) 40 mg SUBCUT Q24H [facility] Last Admin: 04/04/20 15:00 Dose: 40 mg Documented by: Sodium Chloride (Saline Flush) 10 ml FLUSH ASDIRECTED PRN PRN Reason: Keep Vein Open Last Admin: 04/04/20 11:17 Dose: 10 ml Documented by: Sodium Chloride (Saline Flush) 2.5 ml FLUSH ASDIRECTED PRN PRN Reason: Keep Vein Open Last Admin: 04/04/20 11:18 Dose: 2.5 ml Documented by: Sotalol HCl (Betapace) 80 mg PO BID [facility] Discontinued Medications Adenosine (Adenocard) 6 mg IVPUSH NOW ONE Stop: 04/04/20 19:57 Last Admin: 04/04/20 19:57 Dose: 6 mg Documented by: Adenosine (Adenocard) 12 mg IVPUSH NOW ONE Stop: 04/04/20 20:00 Last Admin: 04/04/20 19:59 Dose: 12 mg Documented by: Adenosine (Adenocard) 12 mg IVPUSH NOW ONE Stop: 04/04/20 20:06 Last Admin: 04/04/20 20:05 Dose: 12 mg Documented by: Diltiazem HCl (Diltiazem) 20 mg IVPUSH ONETIME ONE Stop: 04/04/20 20:08 Last Admin: 04/04/20 21:35 Dose: Not Given Documented by: Diltiazem HCl (Diltiazem) Confirm Administered Dose 50 mg .ROUTE .STK-MED ONE Stop: 04/04/20 20:10 Last Admin: 04/04/20 21:36 Dose: Not Given Documented by: Etomidate (Amidate) 5 mg IVPUSH ONETIME ONE Stop: 04/04/20 20:21 Last Admin: 04/04/20 20:20 Dose: 5 mg Documented by: Lactated Ringer's (Ringers, Lactated) 1,000 mls @ 999 mls/hr IV .BOLUS ONE Stop: 04/04/20 12:43 Last Admin: 04/04/20 11:53 Dose: 999 mls/hr Documented by: Lactated Ringer's (Ringers, Lactated) 1,000 mls @ 999 mls/hr IV BOLUS ONE Stop: 04/04/20 15:05 Last Admin: 04/04/20 14:53 Dose: 999 mls/hr Documented by: Lactated Ringer's (Ringers, Lactated) 1,000 mls @ 125 mls/hr IV ASDIRECTED [facility] Last Admin: 04/05/20 00:40 Dose: 125 mls/hr Documented by: Lactated Ringer's (Ringers, Lactated) 1,000 mls @ 999 mls/hr IV BOLUS ONE Stop: 04/04/20 21:00 Last Admin: 04/04/20 20:53 Dose: 999 mls/hr Documented by: Diltiazem HCl 100 mg/ Sodium (Chloride) 100 mls @ 5 mls/hr IV ASDIRECTED [facility]; Protocol Last Titration: 04/04/20 22:42 Dose: 5 mg/hr, 5 mls/hr Documented by: Metoprolol Tartrate (Lopressor) 5 mg IVPUSH ONETIME ONE Stop: 04/04/20 19:55 Last Admin: 04/04/20 21:35 Dose: Not Given Documented by: Potassium Chloride (Klor-Con M20) 40 meq PO ONETIME ONE Stop: 04/05/20 10:22
[2020-04-05] MEDS ORDERED: Sotalol 80 MG Tab PO SCH (21:00)
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
[2020-04-06] MEDS ORDERED: Diltiazem 180 MG Cap.CD PO SCH (09:00)
== END 2020-04-05 13:45 | disposition home or self-care (01) ==
LOC: MW.ED 10:41 → MW.ICU 12:54 → MW.ED 14:01
PROVIDERS: ADMIT Student in an Organized Health Care Education/Training Program; ATTEND Student in an Organized Health Care Education/Training Program
DX: T41.3X2A Poisoning by local anesthetics, intentional self-harm, initial encounter (principal); I47.1 Supraventricular tachycardia; E66.9 Obesity, unspecified; F41.9 Anxiety disorder, unspecified; F32.2 Major depressive disorder, single episode, severe without psychotic features; F10.20 Alcohol dependence, uncomplicated; F29 Unspecified psychosis not due to a substance or known physiological condition; Z79.899 Other long term (current) drug therapy; Z88.8 Allergy status to other drugs, medicaments and biological substances; Z88.0 Allergy status to penicillin; Z20.828 Contact with and (suspected) exposure to other viral communicable diseases; Y90.0 Blood alcohol level of less than 20 mg/100 ml; Z68.26 Body mass index [BMI] 26.0-26.9, adult
CPT/HCPCS: 36415; 70450; 80048; 80053; 80305; 80307; 82962; 83735; 84703; 85025; 87635; 93005; 96361; 96365; 96366; 96372; 96375; 99285; A9270; G0378; J0153; J1650; J3490; J7050; J7120; 96360; 99217; 99219; 99283; U0002

== ENCOUNTER 2022-09-22 04:09 | Emergency (ER) | payer BC ==
[2022-09-22 04:30] VITALS: BP 135/88; PULSE 84
== END 2022-09-22 05:40 ==
LOC: MW.ED 04:09
DX: I48.91 Unspecified atrial fibrillation (principal); E66.9 Obesity, unspecified; Z68.29 Body mass index [BMI] 29.0-29.9, adult; Z88.0 Allergy status to penicillin; Z79.01 Long term (current) use of anticoagulants
CPT/HCPCS: 93005; 99283; 99284